=== PATIENT | female | born 1945 | race Caucasian/White ===

== ENCOUNTER → 2017-03-13 | Outpatient (CLI) | payer MEDICARE, BC ==
[~2017-03-13] MED LIST: ALBUTEROL0.83 MG/ML; ASMANEX HF100 MCG/Ac IH; ASPIRIN E.C. 8181 MG PO; CARDIZEM CD 24240 MG PO; CARTIA XT240 MG; CHLORTHALIDONE25 MG PO; DOXYCYCLINE 10100 MG PO; ELIQUIS 5MG PO; FOSAMAX 70MG TA70 MG PO; IMURAN 50MG TAB50 MG PO; KEPPRA 500MG500 MG PO; KLOR-CON 1010 MEQ PO; KLOR-CON M2020 MEQ PO; LASIX 40MG TABL40 MG PO; MULTIPLE VITAMI1 CAP PO; NORVASC 5MG5 MG/TAB PO; PLAVIX 75MG TAB75 MG PO; PREDNISONE20 MG PO; PRILOSEC 20MG20 MG PO; QUALITY CHOICE600 M1 PO; SUPER B COMPLEX1 TA2 PO; SYNTHROID0.05 MG/TA PO; TAMBOCOR 1100 MG/TAB PO; TOPROL XL100 MG PO; XANAX .25M0.25 MG/TA PO; ZESTRIL 20MG TA20 MG PO
== END ==
LOC: MHCPAIN 09:30
DX: G89.29 Other chronic pain (principal); M47.817 Spondylosis without myelopathy or radiculopathy, lumbosacral region; M54.16 Radiculopathy, lumbar region; M53.3 Sacrococcygeal disorders, not elsewhere classified
CPT/HCPCS: G0463

== ENCOUNTER → 2017-05-10 | Outpatient (CLI) | payer MEDICARE, BC | LOC: MC.RAD 07:40 | DX: Z12.31 Encounter for screening mammogram for malignant neoplasm of breast (principal) ==

== ENCOUNTER → 2017-05-14 | Outpatient (CLI) | payer MEDICARE, BC | LOC: MC.RAD 13:56 | DX: R92.8 Other abnormal and inconclusive findings on diagnostic imaging of breast (principal) ==

== ENCOUNTER → 2017-05-31 | Outpatient (CLI) | payer MEDICARE, BC ==
[~2017-05-31] MED LIST changes: +ALMACONE 360 M360 ML PO; +AMOXICILLIN 8751 TAB PO; +BD POSIFLUSH SF10 ML IV; +CALCIUM CARBON650 M2 PO; +CARTIA XT240 MG PO; +CEFTIN500 MG PO; +CLEOCIN HCL300 MG PO; +COLACE 100100 MG/CAP PO; +DULCOLAX S10 MG/SUPP RC; +FLOVENT 220MCG7.9 GM IH; +FLOVENT DI50 MCG/Act IH; +HYGROTON 2525 MG/TAB PO; +IMODIUM 2MG CAPS2 MG PO; +K-DUR20 MEQ PO; +LASIX 20MG TABL20 MG PO; +MEGACE 40MG40 MG/TAB PO; +MELATONIN5 M1 PO; +METROGEL1% TOP; +MILK OF MA400 MG/52 PO; +MIRTAZAPINE7.5 MG PO; +MULTI VITAMINS1 TAB PO; +NAMENDA 10MG TA10 MG PO; +NAMENDA5 MG PO; +NATURAL IRON65 MG PO; +NIRAVAM0.25 MG PO; +PACERONE400 MG PO; +PROVENTIL0.09 MG/A1 IH; +Patient's Own Medica TOP; +SEROQUEL 2525 MG/TAB PO; +TRIAMCINOLONE A15 GM TP; +TYLENOL 325MG325 MG PO; +TYLENOL 8 HR PO; +TYLENOL SU120 MG/SUP RC; +VENTOLIN0.09 MG IH; +VITAMIN B COMPL1 SGL PO; +VITAMIN D 1001000 IU PO; +ZILRETTA32 MG TOP
== END ==
LOC: COL.PUL 05-30 11:20
DX: R06.02 Shortness of breath (principal)

== ENCOUNTER → 2017-07-29 | Outpatient (CLI) | payer MEDICARE, BC ==
[~2017-07-29] MED LIST changes: -ALMACONE 360 M360 ML PO; -AMOXICILLIN 8751 TAB PO; -BD POSIFLUSH SF10 ML IV; -CALCIUM CARBON650 M2 PO; -CARTIA XT240 MG PO; -CEFTIN500 MG PO; -CLEOCIN HCL300 MG PO; -COLACE 100100 MG/CAP PO; -DULCOLAX S10 MG/SUPP RC; -FLOVENT 220MCG7.9 GM IH; -FLOVENT DI50 MCG/Act IH; -HYGROTON 2525 MG/TAB PO; -IMODIUM 2MG CAPS2 MG PO; -K-DUR20 MEQ PO; -LASIX 20MG TABL20 MG PO; -MEGACE 40MG40 MG/TAB PO; -MELATONIN5 M1 PO; -METROGEL1% TOP; -MILK OF MA400 MG/52 PO; -MIRTAZAPINE7.5 MG PO; -MULTI VITAMINS1 TAB PO; -NAMENDA 10MG TA10 MG PO; -NAMENDA5 MG PO; -NATURAL IRON65 MG PO; -NIRAVAM0.25 MG PO; -PACERONE400 MG PO; -PROVENTIL0.09 MG/A1 IH; -Patient's Own Medica TOP; -SEROQUEL 2525 MG/TAB PO; -TRIAMCINOLONE A15 GM TP; -TYLENOL 325MG325 MG PO; -TYLENOL 8 HR PO; -TYLENOL SU120 MG/SUP RC; -VENTOLIN0.09 MG IH; -VITAMIN B COMPL1 SGL PO; -VITAMIN D 1001000 IU PO; -ZILRETTA32 MG TOP
== END ==
LOC: COL.RAD 16:22
DX: R51 Headache (principal); Z86.79 Personal history of other diseases of the circulatory system

== ENCOUNTER → 2018-07-30 | Outpatient (CLI) | payer MEDICARE, BC | LOC: MC.RAD 08:35 | DX: Z12.31 Encounter for screening mammogram for malignant neoplasm of breast (principal) ==

== ENCOUNTER 2018-09-03 08:00 | Outpatient (RCR) | payer MEDICARE, BC | END 2018-10-14 | disposition home or self-care (01) | LOC: MKS.ESL.PT | DX: M79.672 Pain in left foot (principal); M79.671 Pain in right foot; R26.89 Other abnormalities of gait and mobility; Z79.82 Long term (current) use of aspirin; Z79.899 Other long term (current) drug therapy | CPT/HCPCS: G8978-GP; G8979-GP ==

== ENCOUNTER → 2018-10-31 | Outpatient (CLI) | payer MEDICARE, BC | LOC: COL.RAD 14:47 | DX: S09.90XA Unspecified injury of head, initial encounter (principal); G93.89 Other specified disorders of brain; Z98.890 Other specified postprocedural states ==

== ENCOUNTER → 2018-11-10 | Outpatient (CLI) | payer MEDICARE, BC | LOC: COL.RAD 11:23 | DX: S42.034A Nondisplaced fracture of lateral end of right clavicle, initial encounter for closed fracture (principal) ==

== ENCOUNTER 2019-01-21 10:00 | Outpatient (RCR) | payer MEDICARE, BC | END 2019-02-09 | disposition home or self-care (01) | LOC: MKS.ESL.PT | DX: R26.89 Other abnormalities of gait and mobility (principal); R29.6 Repeated falls ==

== ENCOUNTER 2019-02-23 00:50 | Inpatient (IN) | payer MEDICARE, BC ==
[~2019-02-23] VITALS: Ht 162.6 cm; Wt 50.3 kg
[2019-02-23] VITALS (8 sets, daily range): BP systolic 117–156; BP diastolic 42–74; PULSE 78–95; TEMP 98–102.4
[2019-02-23 01:31] LABS: COLLECTION METHOD CLEAN CATCH
[2019-02-23 01:48] LABS: MUCOUS Present /lpf; PH 5 (5-8); SQUAMOUS EPITHELIAL None Seen /hpf; URINE APPEARANCE Hazy; URINE BACTERIA None Seen /hpf; URINE BILIRUBIN Negative (NEGATIVE); URINE BLOOD Negative (NEGATIVE); URINE GLUCOSE Negative (NEGATIVE); URINE KETONE Trace (NEGATIVE); URINE LEUKOCYTE ESTERASE Negative (NEGATIVE); URINE NITRATE Negative (NEGATIVE); URINE PROTEIN(semi-quant) Negative (NEGATIVE); URINE RBC 0-2 /hpf; URINE UROBILINOGEN Negative (NEGATIVE)
[2019-02-23 01:49] LABS: URINE COLOR Yellow
[2019-02-23 02:10] LABS: BASO % 0.2 % (0.0-2.0); EOS # 0.1 (0.0-0.7); GRAN # 8.1 (1.4-6.5); GRAN % 87.3 % (42.2-75.2); HEMATOCRIT 37.9 % (37.0-47.0); LYMPH # 0.5 (1.2-3.4); LYMPH % 4.9 % (20.0-51.0); MEAN CELL VOLUME 85 fl (80.0-100.0); MEAN CORPUSCULAR HEMOGLOBIN 27 pg (27.0-31.0); MEAN CORPUSCULAR HGB CONC 32 g/dl (33.0-37.0); MEAN PLATELET VOLUME 10.2 fl (7.4-10.4); MONO # 0.5 (0.1-0.6); MONO % 5.8 % (1.7-9.3); PLATELET COUNT 172 K/mm3 (130-400); RED BLOOD COUNT 4.44 M/mm3 (4.10-5.30); REDCELL DISTRIBUTION WIDTH-CV 13.5 % (11.5-14.5)
[2019-02-23 02:12] LABS: INR 1.1 (0.8-3.0); PROTHROMBIN TIME 12.4 SECONDS (9.7-12.8)
[2019-02-23 02:18] LABS: ALBUMIN 3.6 gm/dL (3.5-5.0); BILIRUBIN,TOTAL 0.4 mg/dL (0.0-1.0); CALCIUM 9.1 mg/dL (8.4-10.2); CREATININE, serum 0.56 (0.52-1.25); POTASSIUM 3.5 mmol/L (3.4-5.0); TOTAL PROTEIN 7.2 gm/dL (6.4-8.2)
[2019-02-23 02:29] LABS: TROPONIN-I 0.025 ng/mL (0.000-0.035)
[2019-02-23] MEDS ORDERED: K-DUR20 MEQ PO (02:55)
[2019-02-23] MEDS ORDERED: SYNTHROID0.05 MG/TA PO (02:55)
[2019-02-23] MEDS ORDERED: LASIX 20MG TABL20 MG PO (02:56)
[2019-02-23] MEDS ORDERED: TAMBOCOR 1100 MG/TAB PO (03:02)
[2019-02-23] MEDS ORDERED: CARTIA XT240 MG PO (03:02)
[2019-02-23] MEDS ORDERED: HYGROTON 2525 MG/TAB PO (03:02)
[2019-02-23] MEDS ORDERED: KEPPRA 500MG500 MG PO (03:03)
[2019-02-23] MEDS ORDERED: CALCIUM CARBON650 M2 PO (03:03)
[2019-02-23] MEDS ORDERED: TYLENOL 8 HR PO (03:03)
[2019-02-23] MEDS ORDERED: MULTI VITAMINS1 TAB PO (03:04)
[2019-02-23] MEDS ORDERED: VITAMIN D 1001000 IU PO (03:04)
[2019-02-23] MEDS ORDERED: NATURAL IRON65 MG PO (03:05)
[2019-02-23] MEDS ORDERED: FLOVENT 220MCG7.9 GM IH (03:54)
[2019-02-23] MEDS ORDERED: VITAMIN B COMPL1 SGL PO (03:54)
[2019-02-23] MEDS ORDERED: PROVENTIL0.09 MG/A1 IH ×2 (03:55→04:01)
[2019-02-23] MEDS ORDERED: FOSAMAX 70MG TA70 MG PO ×2 (03:56→04:02)
[2019-02-23] MEDS ORDERED: XANAX .25M0.25 MG/TA PO (03:56)
[2019-02-23] MEDS ORDERED: FLOVENT DI50 MCG/Act IH (04:00)
[2019-02-23] MEDS ORDERED: NIRAVAM0.25 MG PO (04:01)
[2019-02-23 04:32] LABS: PROLACTIN 11.9 ng/mL (3.0-18.6)
[2019-02-23 04:47] LABS: TSH w REFLEX 1.81 uIU/mL (0.465-4.680)
--- NOTE | 2019-02-23 05:00 | NUR ---
PT ADMITTED WITH ALTERED MENTAL STATUS. PT FORGETFUL, VERY DROWSY. BED ALARM ON. SEE 5 PAGE ADMISSION ASSESSMENT.
[2019-02-23 05:02] LABS: MAGNESIUM 1.5 mg/dL (1.6-2.3); PHOSPHOROUS 2.8 mg/dL (2.5-4.5)
--- NOTE | 2019-02-23 11:00 | NUR ---
Patient alert, intermittent confusion noted. See assessment. Neuro assessment completed. Ambulates in room with assist x1 with gait belt and FWW, gait shuffling. IV fluids infusing. Spouse at bedside. No c/o at this time.
--- NOTE | 2019-02-23 11:25 | NUR ---
SW met with patient and about discharge planning. Patient lives at home with her . Patient's PCP is Dr Olson and she obtains prescriptions from [facility]. Patient uses a walker or cane but no other DME is reported. Patient does not use any home health services. Patient does have a DPOA. Patient's voiced concern about patient discharging home because they have stairs and patient is unable to use the stairs at this time. SW reported that PT will be able to work with her on the stairs while she is here and see if she is safe to go home. SW reported that if patient is not safe to go home, SW can provide options for post acute rehab. MEKHI explained the difference between SNF and IPR. SW will continue to follow.
--- NOTE | 2019-02-23 14:50 | NUR ---
Initial visit; Patient was able to let Case Hardener know she is not doing well and very much wanted prayer. Case Hardener offered prayer for patient and her . Case Hardener will follow up.
--- NOTE | 2019-02-23 20:00 | NUR ---
REPORT RECEIVED. ASSUMED CARE FOR ORDNANCE HANDLER. ASSESSMENT COMPLETE SEE NOTE. VS STABLE. DENIES PAIN-SEEMS VERY CONFUSED TO WHERE SHE IS AND WHY. MUMBLING ON AND OFF. FAMILY IS AT BEDSIDE STATIING SHE HAS BEEN VERY CONFUSED THIS AFTERNOON-STATES SHE NEEDS THE BATHROOM THEN STATES SHE DOESNT. NO S/S OF DISTRESS NOTED. CALL LIGHT WITHIN REACH. BED IN LOW POSITION-ALARM ON. WILL MONITOR.
--- NOTE | 2019-02-23 22:00 | NUR ---
NOTED BE VERY WARM TO TOUCH. VERY CONFUSED. UNABLE TO GIVE PO HS MEDICATIONS. AXILLARY TEMP 102.4. NOTIFIED HOSPITALIST-NEW ORDERS RECEIVED. WILL MONITOR.
--- NOTE | 2019-02-23 23:50 | NUR ---
AFEBRILE. STILL CONFUSED BUT AWAKE ENOUGH TO TAKE HS MEDICATIONS WITH APPLESAUCE. DENIES PAIN. WILL MONITOR.
[2019-02-24] VITALS (134 sets, daily range): BP systolic 107–150; BP diastolic 52–87; PULSE 88–128; TEMP 98.4–103.1; O2SAT 58–97
--- NOTE | 2019-02-24 05:00 | NUR ---
TELE SHOWING A FIB. NOTIFIED PROVIDER. NEW ORDERS RECEIVED AND IMPLEMENTED. LOVENOX GIVEN WELL LOPRESSOR. VS STABLE AT THIS POINT. SEEMS TO BE LESS CONFUSED KNOWING NAME AND . DENIES PAIN. BRANDY HUITRON
[2019-02-24 06:19] LABS: POTASSIUM 2.9 mmol/L (3.4-5.0)
[2019-02-24 06:30] LABS: CALCIUM 8.3 mg/dL (8.4-10.2); CREATININE, serum 0.5 (0.52-1.25)
--- NOTE | 2019-02-24 06:54 | NUR ---
REPORT FROM FELIX GUAN.
--- NOTE | 2019-02-24 07:08 | NUR ---
REPORT TO ROGE MAN
[2019-02-24 08:04] LABS: BASO % 0.3 % (0.0-2.0); EOS % 0.2 % (0-4.0); GRAN # 8.9 (1.4-6.5); GRAN % 85.1 % (42.2-75.2); HEMOGLOBIN 11.2 g/dl (12.5-16.0); LYMPH # 0.7 (1.2-3.4); LYMPH % 6.4 % (20.0-51.0); MEAN CELL VOLUME 85 fl (80.0-100.0); MEAN CORPUSCULAR HEMOGLOBIN 27 pg (27.0-31.0); MEAN CORPUSCULAR HGB CONC 32 g/dl (33.0-37.0); MEAN PLATELET VOLUME 10.6 fl (7.4-10.4); MONO # 0.8 (0.1-0.6); MONO % 7.5 % (1.7-9.3); PLATELET COUNT 181 K/mm3 (130-400); RED BLOOD COUNT 4.16 M/mm3 (4.10-5.30); REDCELL DISTRIBUTION WIDTH-CV 13.6 % (11.5-14.5)
[2019-02-24 08:05] LABS: HEMATOCRIT 35.2 % (37.0-47.0)
--- NOTE | 2019-02-24 08:44 | NUR ---
PATIENT REMAINS CONFUSED. AT BEDSIDE. TRANSFERED PT TO [facility] NO RESULTS. THIS WAS AFTER PT WAS INCONTINENT OF URINE AND WAS CLEANDED UP BY STAFF.
--- NOTE | 2019-02-24 13:22 | NUR ---
IRENA TO ROOM 325 TO DO EEG. ASSISTED PT TO COMMODE AND THEN TO BED FOR TEST.
--- NOTE | 2019-02-24 16:48 | NUR ---
CHEST XRAY BEING COMPLETED AT THIS TIME. PT SPIKED A TEMP OF 101.4 CONTACTED SEEMA ZIMMER. [facility]
--- NOTE | 2019-02-24 19:04 | NUR ---
report to Asia GUAN.
--- NOTE | 2019-02-24 19:18 | NUR ---
Report received from ROGE Riggs.
--- NOTE | 2019-02-24 20:15 | NUR ---
Pt arrived to unit via medical bed X2 staff assistance. Pt pale in color and diaphoretic to touch. Family assisted pt although was directed to waiting room in order to get pt settled at this time. Pt was tx to ICU08 bed X5 staff assistance. Bedside report was received. Pt able to open eyes to name and stimulation although would not answer questions when asked.
[2019-02-24 20:18] LABS: ARTERIAL BLD GAS O2 SATURATION 88.2 % (92-100); ARTERIAL BLD GAS TCO2 CT 21.9; ARTERIAL BLOOD GAS BASE EXCESS -0.5 (-2-2); ARTERIAL BLOOD GAS HCO3 21.1 meq/L (22-26); ARTERIAL BLOOD GAS PCO2 26.2 mmHg (35-45); ARTERIAL BLOOD GAS PO2 52.4 mmHg (80-100); ARTERIAL BLOOD GAS pH 7.52 (7.35-7.45)
--- NOTE | 2019-02-24 20:53 | NUR ---
IV started in pts L hand due to incompatibility with Zosyn and Cardizem. Pt tolerated insertion well with 1 attempt. Per Gabi Hill APRN, do not administer Cardizem bolus although start the gtt at this time.
[2019-02-24 21:13] LABS: CALCIUM 7.7 mg/dL (8.4-10.2); CREATININE, serum 0.61 (0.52-1.25); MAGNESIUM 2.2 mg/dL (1.6-2.3)
[2019-02-24 21:17] LABS: POTASSIUM 2.7 mmol/L (3.4-5.0)
--- NOTE | 2019-02-24 22:50 | NUR ---
Bedside nurses swallow study completed. Pt unable to get any liquids through a straw, although was able to drink out of a cup with assistance. Pt swallowed pudding in small bites with no complaints or noted coughing following administration/ swallowing. Pills administered although pt reported although being able to swallow pills at home, unable to swallow them whole at this time. Pills crushed and administered with no noted difficulty.
[2019-02-25] VITALS (562 sets, daily range): BP systolic 98–144; BP diastolic 60–83; PULSE 80–100; TEMP 97.2–100.4; O2SAT 50–100
--- NOTE | 2019-02-25 01:26 | NUR ---
At about 1940 Family noted to be talking with MARTA Ashley, and this nurse walked into the room. Patient noted to be moaning and mumbling infrequently as she did during bedside report. Noted to be breathing fast through her mouth and is diaphoretic. Temperature noted to be 103.1. blankets removed and temperature in the room decreased. Wet wash cloth applied to forhead. Rectal Tylenol given per Gabi. Incontinent cares were provided at this time. Vitals were taken and oxygen saturation low with high heart rate noted. Gabi updated. Oxygen saturation noted to be 77%. 5L oxygen administered via nasal cannula. Respiratory therapy called. Oxy mask applied when respiratory therapy was with patient. Oxygen increased to 87% on 5L oxymask. ABGs were obtained. Patient has eyes closed and doesn't appear to be aware of staff in the room. chocolate finisher operator alerted this nurse that the patient was in A-fib at a high rate. Pulse noted to be ranging from 113-132. Gabi stated she wanted to transfer patient to the ICU. Attempted to call supervisor housecleaner multiple times with no answer. Daria, studio operations engineer in charge, notified about situation. Gabi asked me to call ICU charge nurse and check on a bed. This nurse spoke with Yon about the situation. Daria then called me and stated patient would be going into room 8. Patient and family was then prepped to go to ICU. Patient awoke to her name in the elevator, but promptly closed her eyes. Patient taken by bed to ICU 8, where verbal report was given to ROGE Headley.
--- NOTE | 2019-02-25 02:30 | NUR ---
Pt was noted to have an increased temp of 100.4 at this time. Top blanket removed and fan turned on at this time. If no improvement noted will administer PRN Tylenol per order.
[2019-02-25 05:17] LABS: BASO # 0.1 (0.0-0.2); BASO % 0.4 % (0.0-2.0); HEMOGLOBIN 10.4 g/dl (12.5-16.0); LYMPH # 0.8 (1.2-3.4); LYMPH % 6.7 % (20.0-51.0); MEAN CELL VOLUME 83 fl (80.0-100.0); MEAN CORPUSCULAR HEMOGLOBIN 27 pg (27.0-31.0); MEAN CORPUSCULAR HGB CONC 33 g/dl (33.0-37.0); MONO # 0.9 (0.1-0.6); MONO % 7.2 % (1.7-9.3); PLATELET COUNT 140 K/mm3 (130-400); RED BLOOD COUNT 3.82 M/mm3 (4.10-5.30); REDCELL DISTRIBUTION WIDTH-CV 13.8 % (11.5-14.5)
[2019-02-25 05:22] LABS: HEMATOCRIT 31.7 % (37.0-47.0)
[2019-02-25 05:47] LABS: CREATININE, serum 0.64 (0.52-1.25); MAGNESIUM 2.2 mg/dL (1.6-2.3); POTASSIUM 3.8 mmol/L (3.4-5.0)
--- NOTE | 2019-02-25 07:15 | NUR ---
BEDSIDE REPORT RECEIVED FROM ROGE STEWART. POC DISCUSSED. PATIENT ALERT AND PARTIALLY ORIENTED. CARE TAKEN OVER.
--- NOTE | 2019-02-25 07:20 | NUR ---
Bedside report provided to Trini GUAN. Pt significant other and daughter Conchita at bedside active in report at this time.
--- NOTE | 2019-02-25 09:30 | NUR ---
PATIENT LEAVES FOR LUMBAR PUNCTURE AT THIS TIME.
--- NOTE | 2019-02-25 10:15 | NUR ---
PATIENT RETURNS TO ICU ROOM 8. SHE IS LYING FLAT. VS WNL. WILL CONTINUE TO MONITOR.
[2019-02-25 10:41] LABS: GLUCOSE,CSF 77 mg/dL (40-70); TOTAL PROTEIN,CSF 44 mg/dL (15-45)
[2019-02-25 11:32] LABS: CSF COLOR COLORLESS
[2019-02-25 11:33] LABS: CSF APPEARANCE CLEAR; CSF MONONUCLEAR 0 % (70-100); CSF POLYMORPHONUCLEAR 0 % (0-6); CSF RBC 5 /mm3 (0-0)
--- NOTE | 2019-02-25 14:00 | NUR ---
PATIENT UP TO [facility] FOR THE LAST COUPLE HOURS. SHE TRANSFERRED WITH ONE PERSON ASSIST. SHE IS UNSTEADY ON HER FEET. SPEECH THERAPY IN TO SEE PATIENT AT THIS TIME. WILL CONTINUE TO MONITOR
--- NOTE | 2019-02-25 15:30 | NUR ---
MEKHI spoke with patient daughter/DPOA, Whitney [phone], about discharge plan. Whitney inquired if patient will require post acute rehab. MEKHI reported that SNF has been recommended and MEKHI will meet with patient and he significant other about choices. MEKHI will also keep Whitney informed with the discharge plan.
--- NOTE | 2019-02-25 15:45 | NUR ---
REPORT GIVEN TO ROGE VICTOR ON MEDICAL FLOOR. PATIENT WILL TRANSFER TO ROOM 354
--- NOTE | 2019-02-25 16:57 | NUR ---
Pt up to unit from ICU. Pt denies pain or SOB at rest. Pt remains on oxygen via nasal cannula. Pt's daughter and fiance at pt's bedside. Pt IV's free of complication and no redness or infiltration noted. Pt has call light in reach and fall precautions in place d/t confusion/forgetfulness. Pt pleasant and able to follow commands.
--- NOTE | 2019-02-25 19:51 | NUR ---
Pt becoming more restless this evening and confused. Notified by Zaida GUAN pt was desatting into 70's. Pt had nasal cannula on at 3L and mouth breathing. Arlette GUAN was given report and accompanyied this nurse. Pt was diaphoretic and nasal cannula put in pt's mouth until non rebreather mask obtained and RT notified. Pt's oxygen started to climb with 5L nasal cannula then recovered with mask and then RT gave breathing tx. Pt VS other than oxygen saturation were WNL. Temp 98.5. Pt confused. Pt repositioned in bed. Pt has fiance at bedside. Pt stable at this time and RT in room. Pt has call light in reach and bed alarm and fall precautions in place. Pt has Zosyn running per orders.
--- NOTE | 2019-02-25 20:02 | NUR ---
CALLED TO ROOM BY RN PT DYSPNIC ALEJANDRA I & e WHEEZES DST 74 ON 3 LPM NC PLACED ON OXYMASK 15 LPM
--- NOTE | 2019-02-25 20:42 | NUR ---
Report called at this time by ROGE Chong. Patient will be brought dwon shortly.
--- NOTE | 2019-02-25 20:54 | NUR ---
Patient arrives via bed at this time. Patient is on BiPAP. RT, RN, and MEDIA CENTER DIRECTOR SCHOOL brought patient down. Transferred patient to unit bed via slide. Attached patient to monitoring equipment. NS drip restarted at 60ml. Dr. Curry at the bedside. Assessment complete. Patient has coarse lung sounds in the upper lobes bilaterally with fine crackles in the bases biltaerally. Bases are also diminished. Patient is tachypneic breathing around 28-30 breaths a minute even with BiPAP on at 90% FIO2. HR and rhythm regular with normal S1 and S2. Bowel sounds are active x4. Patient is alert but confused and very anxious. Continually trying to get out of bed. Chest xray performed at bedside. Dr Curry goes to speak with family. Family now at bedside. Patient is more calm with daughter in the room. Orders for 20mg lasix IV to be given now and precedex started.
--- NOTE | 2019-02-25 21:18 | NUR ---
1930: OUT OF ROOM REPORTING THAT PATIENT WAS VERY SHORT OF BREATHE AND CONFUSED. UPON ENTERING ROOM PATIENT ALERT BUT CONFUSED. OXYGEB SATURATION IN LOW 70 ON 3LO2/NC. DIAPHORETIC. SEE FLOW SHEET FOR FVS OBAINED. TELEMETRY CALLED NSR WITH NO CHANGES IN RATE OR RHYTHM. RT CALLED. NEBULIZER TX ADMINISTERED BY RT CHANGED TO NRB MASK @ 15L. OXYGEN SATURATION UP TO LOW 90S AFTER 10 MINUETS. CONTINUES WITH INCREASED WORK OF BREATHING WITH RESPIRATORY RATE @ 32. CONFUSED, DIAPHORETIC. RUMA LOZANO NOTIFIED. REQUESTED TO CALL PULMOLOGY. DR CANNON CALLED @ 2009. ORDERS RECEIVED FOR BIPAP AND TRANSFER TO ICU. EKG, AND STAT TROPONIN. HOUSE NOTIFIED BY CHARGE NURSE FOR ICU TRANSFER. BIPAP APPLIED BY RT
--- NOTE | 2019-02-25 21:20 | NUR ---
Verbal order to start precedex at this time at 0.1mcg/kg/hr by Dr. Curry.
[2019-02-25 21:53] LABS: CALCIUM 8.5 mg/dL (8.4-10.2); CREATININE, serum 0.71 (0.52-1.25); PHOSPHOROUS 2.4 mg/dL (2.5-4.5); POTASSIUM 3.8 mmol/L (3.4-5.0)
[2019-02-25 22:11] LABS: TROPONIN-I 6 HR POST INITIAL 0.272 ng/mL (0.000-0.034)
[2019-02-25 23:59] LABS: ARTERIAL BLOOD GAS PCO2 33.5 mmHg (35-45); ARTERIAL BLOOD GAS pH 7.37 (7.35-7.45)
[2019-02-26] VITALS (751 sets, daily range): BP systolic 85–149; BP diastolic 51–84; PULSE 72–119; TEMP 98.4–99.8; O2SAT 69–100
[2019-02-26] LABS: ARTERIAL BLD GAS O2 SATURATION 98.3 % (92-100); ARTERIAL BLOOD GAS BASE EXCESS 5.3 (-2-2); ARTERIAL BLOOD GAS HCO3 19.1 meq/L (22-26); ARTERIAL BLOOD GAS PO2 134.6 mmHg (80-100)
--- NOTE | 2019-02-26 | NUR ---
Patient asleep at this time. Awakens to name. Assessment complete. No acute changes from previous exam. Vitals are stable. Patient starts insisting again that she needs to get up and go, she begins talking about "walking down to the corner". Attempted to reorient patient and let her know she is in the hospital in the ICU. Patient states "I know, but I gotta go. I have to walk down there". After a short while staying in the room patient started to calm down and stopped trying to climb out of bed. Bed alarm on. No further needs. Will continue to monitor.
--- NOTE | 2019-02-26 01:30 | NUR ---
Patient starts to become very agitated again saying repeatedly that she wants the BiPAP taken off. BiPAP removed and patient placed on 15L. Patient was only able to sustain mask for 5mins before desatting into the 70's and having increased accessory muscle usage. Switched patient back to BiPAP. Sat's have come back up to 95% after a minute.
--- NOTE | 2019-02-26 02:30 | NUR ---
Orders from Dr. Baker at [facility] to increase dose to 1.4 mcg/kg/hr now, then titrate as needed. Also 2mg IV morphine to be give now with 1 more dose later if needed.
--- NOTE | 2019-02-26 02:45 | NUR ---
Written orders from Dr. Baker to increase Precedex to 1.4 mcg/kg/hr now, then titrate as needed. Also order for 2mg IV morphine now with one more 2mg IV dose if needed. Orders entered and placed on chart
--- NOTE | 2019-02-26 04:00 | NUR ---
Assessment complete. Patient asleep at this time. Awakens to name. Intermittently restless. No changes from previous exam. Heart, lung, and bowel sounds remain the same. Vitals have remained stable. No current needs. Will continue to monitor. Call light within reach.
--- NOTE | 2019-02-26 04:30 | NUR ---
Patient awake again at this time and agitated, pulling at mask and trying to climb over the side rail. Precedex increased. Patient remains agitated. Tried talking to the patient and orienting her, but was unsuccessful. Patient continues to state that she needs to "get up. I need to go. I have to get up". Spoke with patient and let her know if she needs to use the restroom that she has a catheter in and is already urinating. Urine has been flowing clearly without obstruction since insertion. Patient continues to insist that she needs to get up and go. Stayed in patient room for multiple titrations of precedex. At 0505 patient is at 1.5mcg/kg/hr of precedex, which is max dose. At 0512 Patient is asleep again and resting comfortably. Will continue to monitor. Call light within reach. Also administered second dose of morphine.
--- NOTE | 2019-02-26 05:06 | NUR ---
Patient's eldest daughter (DPOA) calls at this time. Updated her on patient status and being brought down to the ICU again. Let her know that patient is currently stable, but she is requiring a lot of oxygen. Patient was unable to tolerate time off the BiPAP. She is very restless and agitated and requiring the max dose of precedex to keep her calm. Patient has also gotten 2 doses of morphine to help with air hunger and possible pain, which has helped. Patient is still breathing 28-32 times a minute with the medications and is on 60% FIO2 via BiPAP. Explained to her BiPAP and how that works and the FIO2. She is asking if she should be getting plane tickets to come out since she lives in [facility]. Let her know that the choice is hers but she should speak with the family who is present here as well. Once again confirmed that patient is stable for now and has been since being in the ICU. No further questions at this time.
--- NOTE | 2019-02-26 07:00 | NUR ---
Bedside report from ROGE Sanchez. Patient VERY restless and trying to climb out of bed, all lines and gtts verified. Bed alarm on and fall precautions in place.
--- NOTE | 2019-02-26 07:15 | NUR ---
Assessment complete, patient on bipap at 60%, continually pulls at bipap mask, flings legs over side rail of bed, and continues to try and pull herself out of bed, patient asks "how Nolberto is." Call light within reach, this RN in room constantly, as patient is climbing out of bed. Bed alarm remains on, fall precautions in place.
--- NOTE | 2019-02-26 07:20 | NUR ---
Bedside report given to ROGE Newell. Assisted with repositioning patient. All lines and medications reviewed. transfer of care at this time.
--- NOTE | 2019-02-26 08:00 | NUR ---
Family at bedside, VERY attentive.
--- NOTE | 2019-02-26 08:20 | NUR ---
Patient cannot swallow pills at this time, attempted several times and finally spit them out.
--- NOTE | 2019-02-26 08:27 | NUR ---
Dr. Cox here, takes patient off bipap, places patient on 5L/OM, patient aggitated and dyspneic, orders for ativan to be given.
--- NOTE | 2019-02-26 08:40 | NUR ---
Dr. Cox wants patient back on bipap at this time. Family at bedside.
[2019-02-26 08:49] LABS: ARTERIAL BLD GAS O2 SATURATION 94.5 % (92-100); ARTERIAL BLD GAS TCO2 CT 19.4; ARTERIAL BLOOD GAS BASE EXCESS -4.9 (-2-2); ARTERIAL BLOOD GAS HCO3 18.5 meq/L (22-26); ARTERIAL BLOOD GAS PCO2 29.1 mmHg (35-45); ARTERIAL BLOOD GAS PO2 74.6 mmHg (80-100); ARTERIAL BLOOD GAS pH 7.42 (7.35-7.45)
--- NOTE | 2019-02-26 09:13 | NUR ---
AIVS here to place picc line.
[2019-02-26 09:51] LABS: MEAN CELL VOLUME 86 fl (80.0-100.0); MEAN CORPUSCULAR HGB CONC 31 g/dl (33.0-37.0); MEAN PLATELET VOLUME 11.3 fl (7.4-10.4); PLATELET COUNT 166 K/mm3 (130-400); RED BLOOD COUNT 3.54 M/mm3 (4.10-5.30); REDCELL DISTRIBUTION WIDTH-CV 13.9 % (11.5-14.5)
[2019-02-26 09:54] LABS: HEMATOCRIT 30.3 % (37.0-47.0); HEMOGLOBIN 9.5 g/dl (12.5-16.0); MEAN CORPUSCULAR HEMOGLOBIN 27 pg (27.0-31.0)
[2019-02-26 10:01] LABS: ALBUMIN 2.8 gm/dL (3.5-5.0); BILIRUBIN,TOTAL 0.7 mg/dL (0.0-1.0); CREATININE, serum 0.85 (0.52-1.25); MAGNESIUM 1.8 mg/dL (1.6-2.3); PHOSPHOROUS 2.4 mg/dL (2.5-4.5); POTASSIUM 3.1 mmol/L (3.4-5.0)
--- NOTE | 2019-02-26 10:15 | NUR ---
PT here to see patient.
[2019-02-26 10:35] LABS: LYMPHOCYTE 9 % (20.0-51.0); NEUTROPHILS 86 % (42.0-75.2)
[2019-02-26 10:36] LABS: PLATELET ESTIMATE NORMAL (NORMAL)
--- NOTE | 2019-02-26 14:00 | NUR ---
Patient taken off bipap, placed on 8L/OM by RT at this time, boyfriend in room, this RN speaking with daughter Whitney of phone, giving update.
--- NOTE | 2019-02-26 15:19 | NUR ---
Patient diaphoretic, tachycardic, tachypneic, placed back on bipap, boyfriend at bedside.
--- NOTE | 2019-02-26 15:52 | NUR ---
Patient continues to try and climb out of bed, daughter at bedside.
--- NOTE | 2019-02-26 16:00 | NUR ---
PRN ativan given as ordered for agitation/restlessness, daughter at bedside.
--- NOTE | 2019-02-26 17:12 | NUR ---
Patient resting quietly in bed, daughter at bedside.
--- NOTE | 2019-02-26 19:13 | NUR ---
Bedside report given to ROGE Sanchez.
--- NOTE | 2019-02-26 19:15 | NUR ---
Bedside report received from ROGE Newell. Patient is awake in bed and restless. Lines and medications reviewed. Transfer of care at this time.
--- NOTE | 2019-02-26 20:00 | NUR ---
Patient is very alert and trying to climb out of bed by scooting herself down in the bed and flipping her legs over the side. With assistance, repositioned the patient. She is trying to pull the BiPAP off. Spoke with her about the BiPAP and how it is helping her breathe. Patient stopped pulling at the mask for a short while. Assessment complete. Family at bedside. Patient alert and confused. Follows commands. lungs are coarse in all coello with diminished bases, upper lobes have expiratory wheezes. Bowel sounds are active x4. Patient is tachycardic in the 130's and in afib. Patient's catheter has yellow clear urine flowing. Patient does not have complaints of pain at this time, but is restless and anxious. Daughter is currently rubbing the patients legs with lotion. Gave patient a break from the BiPAP to have some water, BiPAP replaced. No further needs at this time. Will continue to monitor. Call light within reach.
--- NOTE | 2019-02-26 21:40 | NUR ---
Patient is very agitated and trying to climb out of bed and pull off the BiPAP. She has also started pulling at her PICC line and jean. This nurse has been at the bedside since shift start trying to distract and reorient the patient. No success. Will contact EICU for new orders.
--- NOTE | 2019-02-26 22:45 | NUR ---
Precedex started at this time at 1.4 mcg/kg/hr as directed by Dr. Baker at [facility]. Orders placed on chart.
[2019-02-27] VITALS (722 sets, daily range): BP systolic 102–138; BP diastolic 56–87; PULSE 74–125; TEMP 97.5–99.2; O2SAT 42–100
--- NOTE | 2019-02-27 | NUR ---
Patient resting at this time, but is starting to wake up again. Assessment complete. Lungs are coarse with diminished bases and expiratory wheezes in the left lung. Patient continues to be tachypneic anywhere from 32-40 breaths a minute. Bowel sounds are active. Patient's heart rate is still in the 110's to 130's and in afib. Patient appears comfortbale at this time. Vitals have remained stable. Will continue to monitor. Call light within reach.
--- NOTE | 2019-02-27 00:45 | NUR ---
Patient has returned to a normal sinus rhythm at this time. Confirmed by MT. Oswald
[2019-02-27 00:50] LABS: BASO % 0.4 % (0.0-2.0); GRAN # 8.8 (1.4-6.5); GRAN % 79.7 % (42.2-75.2); LYMPH # 1.1 (1.2-3.4); LYMPH % 10.2 % (20.0-51.0); MEAN CELL VOLUME 87 fl (80.0-100.0); MEAN CORPUSCULAR HGB CONC 31 g/dl (33.0-37.0); MEAN PLATELET VOLUME 10.6 fl (7.4-10.4); MONO % 8.6 % (1.7-9.3); PLATELET COUNT 195 K/mm3 (130-400); RED BLOOD COUNT 3.43 M/mm3 (4.10-5.30)
[2019-02-27 00:53] LABS: HEMATOCRIT 29.7 % (37.0-47.0); HEMOGLOBIN 9.3 g/dl (12.5-16.0); MEAN CORPUSCULAR HEMOGLOBIN 27 pg (27.0-31.0)
[2019-02-27 01:01] LABS: CALCIUM 7.8 mg/dL (8.4-10.2); CREATININE, serum 0.94 (0.52-1.25); MAGNESIUM 1.6 mg/dL (1.6-2.3); PHOSPHOROUS 1.9 mg/dL (2.5-4.5); POTASSIUM 4.1 mmol/L (3.4-5.0)
--- NOTE | 2019-02-27 02:35 | NUR ---
Carol from [facility] comes over the room camera at this time and speaks with this nurse. Let her know I was going to call and request some morphine, since that seems to work best in calming her down. See physician notification for details. She will pass on to Dr. Baker and fax written orders when ready.
--- NOTE | 2019-02-27 04:00 | NUR ---
Patient sleeping, but is easily disturbed. When awake, patient is hyperalert and lashing out at staff, but quickly will fall asleep again. Assessment complete. Lungs are coarse in all coello with diminished bases. No evidence of wheezing at this time. HR and rhythm regular, patient remains in normal sinus. Bowel sounds active x4. Patient given a bed bath and linens changed. Repositioned for comfort. No further needs at this time. Will continue to monitor. Call light within reach.
--- NOTE | 2019-02-27 05:08 | NUR ---
Patient is back in afib on the monitors at this time. HR ranges from to 90's to 110's.
[2019-02-27 05:14] LABS: ALBUMIN 2.8 gm/dL (3.5-5.0); BILIRUBIN,TOTAL 0.7 mg/dL (0.0-1.0); CALCIUM 7.8 mg/dL (8.4-10.2); CREATININE, serum 0.92 (0.52-1.25); MAGNESIUM 1.6 mg/dL (1.6-2.3); PHOSPHOROUS 1.7 mg/dL (2.5-4.5); POTASSIUM 3.1 mmol/L (3.4-5.0); TOTAL PROTEIN 5.9 gm/dL (6.4-8.2)
--- NOTE | 2019-02-27 06:00 | NUR ---
Dosages adjusted at this time for new bag of Amiodarone up to 17.3ml instead of 16.7. Precedex dose adjusted for new weight of 60.9, which changes dose to 23.7ml/hr, still at 1.5mcg/kg/hr.
--- NOTE | 2019-02-27 07:26 | NUR ---
Bedside report given to ROGE Handley. All lines and medications reviewed. Transfer of care at this time.
--- NOTE | 2019-02-27 08:30 | NUR ---
DR HICKEY PRESENT TO ROUND ON PATIENT.
--- NOTE | 2019-02-27 08:45 | NUR ---
SPOKE AT LENGTH WITH PATIENT'S BOYFRIEND AND HIS DAUGHTER AND SON IN LAW. PT'S BOYFRIEND INQUIRING ABOUT NUTRITION FOR PATIENT. DISCUSSED AT LENGTH WITH FAMILY MEMBERS AND EXPLAINED TO THEM ABOUT CURRENT MEDICATIONS, NUTRITIONAL STATUS, PROGRESS, ETC. FAMILY THANKED ME FOR EXPLAINING EVERYTHING. PT SEEMS AT EASY AND COMFORTABLE WITH CURRENT PLAN AND TREATMENT.
[2019-02-27 08:56] LABS: ARTERIAL BLD GAS O2 SATURATION 98.1 % (92-100); ARTERIAL BLD GAS TCO2 CT 21.5; ARTERIAL BLOOD GAS BASE EXCESS -2.4 (-2-2); ARTERIAL BLOOD GAS HCO3 20.6 meq/L (22-26); ARTERIAL BLOOD GAS PCO2 29.7 mmHg (35-45); ARTERIAL BLOOD GAS PO2 137.8 mmHg (80-100); ARTERIAL BLOOD GAS pH 7.46 (7.35-7.45)
--- NOTE | 2019-02-27 09:23 | NUR ---
FIO2 DECREASED TO 40% BY RT.
--- NOTE | 2019-02-27 10:37 | NUR ---
ALEXIS AND HOSPITALIST HOPING TO START TPN ON PATIENT BUT PT HAS LIMITED ACCESS AVAILABLE D/T BUMEX GTT, PRECEDEX GTT, AND AMIODARONE GTT ALONG WITH IV ATB AND KEPPRA IV. 20G PERIPHERAL IV INITATED TO LEFT OUT AC TO ACCOMODATE IV MEDICATIONS IN ORDER TO START TPN THROUGHT PICC LINE.
[2019-02-27 11:56] LABS: CHOLESTEROL 93 mg/dL (120-200); TRIGLYCERIDE 119 mg/dL
--- NOTE | 2019-02-27 12:15 | NUR ---
GTT PLACED ON STANDBY TO ASSESS PATIENT'S MENTATION.
--- NOTE | 2019-02-27 12:16 | NUR ---
PT AWOKE AND ATTEMPTED TO TAKE BIPAP MASK OFF. I ASKED PATIENT IF SHE WOULD LIKE A BREAK FROM THE BIPAP AND PT STATED YES. PT PLACED ON 4L OM. PT'S O2 SAT 91% ON 4L OM. PT HAS MILD LABORING OF BREATHING BUT DENIES SHORTNESS OF BREATH. PT ANSWERING SOME QUESTIONS APPROPRIATELY BUT SPEECH IS SLIGHTLY GARBLED AND DIFFICULT TO UNDERSTAND. ATTEMPTED TO GET FAMILY FROM WAITING ROOM BUT FAMILY NO LONGER THERE. I EXPLAINED TO PATIENT THAT FAMILY IS NOT HERE AT THE MOMENT BUT I WILL GO CHECK AGAIN IN A FEW MINUTES TO SEE IF THEY HAVE RETURNED. PT MAKING SOME INCOMPREHENSIBLE MOANING AND TALKING BUT OVERALL PT BEING CALM AND COOPERATIVE. PT HAVING DIFFICULT TIME OPENING EYES SO I PLACED PRECEDEX GTT ON STANDBY TO ALLOW PT TO AWAKEN TO ASSESS MENTATION.
--- NOTE | 2019-02-27 12:53 | NUR ---
PT TOLERATING BEING ON 4L OM WELL. PT'S MENTATION SLIGHTLY BETTER. PT ANSWERING QUESTIONS APPROPRIATELY. PT SLIGHTLY CONFUSED ABOUT TIME AND CURRENT SITUATION. PT SPEAKING IN COMPLETE SENTENCES.
--- NOTE | 2019-02-27 12:54 | NUR ---
PRECEDEX GTT CONTINUES TO BE ON STANDBY TO ASSESS PATIENT'S MENTATION.
--- NOTE | 2019-02-27 14:11 | NUR ---
PT BECOMING DYSPNEIC AND LETHARGIC. PT BIPAP RESUMED WELL PRECEDEX GTT FOR AGITATION AND SOB. GTT RESTARTED AT 0.5MCG/KG/MIN.
--- NOTE | 2019-02-27 14:42 | NUR ---
PT CONTINUES TO BE TACHYPNEIC AND RESTLESS. PRECEDEX GTT INCREASED.
--- NOTE | 2019-02-27 15:38 | NUR ---
WAITING FOR PATIENT TO BE FINISHED WITH TRAY BEFORE TRANSPORTING HER TO MEDICAL FLOOR.
--- NOTE | 2019-02-27 15:39 | NUR ---
MEKHI spoke with patient's daughter, Conchita, about discharge planning. Conchita reports her sister Whitney (patient's DPOA) has been researching facilities for patient but has not chosen one yet. Conchita reports Whitney is unvailable to speak with right now due to a family issue but Conchita will speak with Whitney hood and report back to SW tomorrow morning. MEKHI provided medicare.gov resource list for nursing facilities for Conchita to review with Whitney and patient's significant other, Nolberto. MEKHI will leave a note for weekend SW to follow up with patient's family tomorrow morning.
--- NOTE | 2019-02-27 16:01 | NUR ---
PT CONTINUES TO BE AGITATED AND PULLING AT BIPAP MASK EVEN AFTER PRN ATIVAN. PRECEDEX GTT INCREASED TO 1.5MCG/KG/MIN.
--- NOTE | 2019-02-27 16:37 | NUR ---
PT CONTINUES TO BE RESTLESS AND AGITATED. ATTEMPTED TO ALLOW PATIENT TO JUST WEAR OM AT 4L BUT PT UNABLE TO TOLERATE D/T SOB. PT PLACED BACK ON BIPAP.
--- NOTE | 2019-02-27 19:15 | NUR ---
Bedside report received from ROGE Handley. All lines and medications reviewed. Patient is restless and pulling at the mask at this time. Boyfriend, Nolberto, at the bedside.
--- NOTE | 2019-02-27 20:00 | NUR ---
Patient opens eyes to speech, she is continually pulling at the mask and pushing her fingers under the seal. Readjusted mask, patient appears more comfortable and is no longer pulling at it. Assessment complete. Assessment reveals Coarse lung sounds in all coello with diminished bases. HR and rhythm regular at this time. Bowel sounds active x4. Patient does follow commands, but has a weak grasp. Patient is starting to develop a small amount of edema in her lower extremities. Patient does not appear to be in any pain. No signs of distress or SOB. Patient is tachypneic. No further needs at this time. Will continue to monitor. Call light within reach.
--- NOTE | 2019-02-27 20:30 | NUR ---
Nolberto Seo, leaves at this time. Patient is asleep and resting comfortably. Will continue to monitor.
[2019-02-28] VITALS (675 sets, daily range): BP systolic 104–1118; BP diastolic 49–83; PULSE 71–110; TEMP 98.6–101.4; O2SAT 60–100
--- NOTE | 2019-02-28 | NUR ---
Patient is sleeping upon entrance into the room. Patient awakens to voice. Follows commands, then quickly falls back asleep. Assessment complete. Patient tries to grab at stethoscope and move it when listening. Lungs are coarse with diminished bases and coarse crackles also in the bases. HR and rhythm regular with normal S1 and S2. Patient is currently in normal sinus rhythm in the 70's. Bowel sounds active x4. Vitals have remained stable. Patient is still tachypneic, rate at 28-32 breaths per minute. No signs of pain or distress. Urine output has been good. Will continue to monitor. Call light within reach.
--- NOTE | 2019-02-28 01:15 | NUR ---
Patient is awake at this time and has pulled apart the BiPAP mask. Attempted to redirect, but unsuccessful. Patient repeats "no, I can't do it. I just cant do it". Antianxiety meds to be provided.
--- NOTE | 2019-02-28 04:00 | NUR ---
Assessment complete. Patient sleeps between disturbances. Awakens to name. No changes from previous assessment. Patient's heart rate has decreased into the 70's. Patient has had over 2L of urine out so far. No evidence of patient being in pain or distress. Vitals have remained stable. No further needs at this time. Will continue to monitor. Call light within reach.
[2019-02-28 05:52] LABS: BASO % 0.5 % (0.0-2.0); EOS % 0.4 % (0-4.0); GRAN # 6.4 (1.4-6.5); GRAN % 78.6 % (42.2-75.2); LYMPH % 11.6 % (20.0-51.0); MEAN CELL VOLUME 86 fl (80.0-100.0); MEAN CORPUSCULAR HGB CONC 32 g/dl (33.0-37.0); MEAN PLATELET VOLUME 10.7 fl (7.4-10.4); MONO # 0.6 (0.1-0.6); MONO % 7.7 % (1.7-9.3); PLATELET COUNT 251 K/mm3 (130-400); RED BLOOD COUNT 3.43 M/mm3 (4.10-5.30); REDCELL DISTRIBUTION WIDTH-CV 13.7 % (11.5-14.5)
[2019-02-28 05:54] LABS: HEMATOCRIT 29.4 % (37.0-47.0); HEMOGLOBIN 9.3 g/dl (12.5-16.0); MEAN CORPUSCULAR HEMOGLOBIN 27 pg (27.0-31.0)
[2019-02-28 06:05] LABS: CALCIUM 8.4 mg/dL (8.4-10.2); CREATININE, serum 0.93 (0.52-1.25); MAGNESIUM 1.5 mg/dL (1.6-2.3); PHOSPHOROUS 3.5 mg/dL (2.5-4.5)
[2019-02-28 06:06] LABS: POTASSIUM 2.5 mmol/L (3.4-5.0)
--- NOTE | 2019-02-28 07:35 | NUR ---
Bedside report given to ROGE Terry
--- NOTE | 2019-02-28 08:38 | NUR ---
Bumex drip decreased to 0.5mg/hr or 5ml per verbal order from Dr. Curry.
[2019-02-28 08:59] LABS: ARTERIAL BLD GAS O2 SATURATION 97.4 % (92-100); ARTERIAL BLOOD GAS BASE EXCESS 1.3 (-2-2); ARTERIAL BLOOD GAS HCO3 23.1 meq/L (22-26); ARTERIAL BLOOD GAS PCO2 27.3 mmHg (35-45); ARTERIAL BLOOD GAS PO2 105.3 mmHg (80-100); ARTERIAL BLOOD GAS pH 7.55 (7.35-7.45)
--- NOTE | 2019-02-28 09:00 | NUR ---
Vapotherm in place, pt tolerating well - education provided to pt and visitors on the oxygen supply mechanism.
--- NOTE | 2019-02-28 11:57 | NUR ---
SW called patients' DPOA who lives in [place]. DPOA gave verbal auth to screen for 1.[facility], 2. [facility]. [facility] was faxed at [phone]. Awaiting screen results.
--- NOTE | 2019-02-28 12:00 | NUR ---
Pt sat up to 90 degrees, pt able to tolerate small amount of blenderized food and thickened liquid before becoming full. Pt states "feeling better, can I have some coke". Educated only intake needs to be high calorie high nutrient value food, and frequent blood sugar checks required while still on TPN - pt and visitors aware and understand
--- NOTE | 2019-02-28 12:54 | NUR ---
EtCO2 monitor applied. See RT notes for alarm parameter orders
--- NOTE | 2019-02-28 16:00 | NUR ---
[facility] conference call complete. Pt refusing voluntary admission for psych hospitalization. Reference number:[id number] - Kenisha is the health animal care taker at [facility]. Conference call with Pt's spouse DaynegladisKenisha and myself complete. updated, all questions invited and all answered. Kenisha stated she will file the proper paperwork to get pt admitted Pt udated on required mandatory psych admission to a hosptial, pt states "I will not go, I do not have to go. I dont need to go, I will be fine. I have to start a new job on Saturday." allowed to vist under my supervision for 5min d/t pt insistently repeating "does not love me anymore and I know he ditched town and left me for good". Pt happy to see , and tolerated visit well. understand and agrees to all unit rules and policies, he will be in waiting room until able to visit again.
--- NOTE | 2019-02-28 16:30 | NUR ---
Pt consumed small amount of strawberry shake delivered by dining services. Pt tolerated will with no coughing or other signs of aspiration.
[2019-02-28 19:33] LABS: MAGNESIUM 1.9 mg/dL (1.6-2.3)
[2019-02-28 19:37] LABS: POTASSIUM 2.9 mmol/L (3.4-5.0)
--- NOTE | 2019-02-28 21:55 | NUR ---
increased per drip titration protocol. patient was extremely agitated and was opal off her oxygen.
--- NOTE | 2019-02-28 21:56 | NUR ---
increased drip per titration protocol.
--- NOTE | 2019-02-28 21:57 | NUR ---
increased drip per drip titration protocol.
--- NOTE | 2019-02-28 22:01 | NUR ---
increased drip per protocol.
--- NOTE | 2019-02-28 22:25 | NUR ---
increased drip per drip protocol.
--- NOTE | 2019-02-28 22:26 | NUR ---
increased drip per protocol.
--- NOTE | 2019-02-28 23:00 | NUR ---
DISCONTINUED DRIP PER DOCTORS REQUESTS.
--- NOTE | 2019-02-28 23:09 | NUR ---
PATIENT CONVERTED BACK TO SINUS RHYTHM.
[2019-03-01] VITALS (589 sets, daily range): BP systolic 121–145; BP diastolic 56–78; PULSE 62–115; TEMP 98.6–99.3; O2SAT 80–99
--- NOTE | 2019-03-01 00:08 | NUR ---
INCREASED DRIP PER TITRATION ORDERS. PATIENT CONTINUED TO PULL OXYGEN OFF.
--- NOTE | 2019-03-01 00:15 | NUR ---
PATIENT IS VERY CONFUSED. CONTINUES TO PULL AT HER OXYGEN TUBING. PATIENTS VITALS ARE STABLE AT THE MOMENT AND SHE IS IN SINUS RHYTHM. WILL CONTINUE TO MONITOR THROUGHOUT SHIFT.
--- NOTE | 2019-03-01 00:25 | NUR ---
CALLED [facility] AND DISCUSSED PLACING MITS ON THE PATIENT TO PREVENT HER FROM TYREE AT HER OXYGEN TUBING.
[2019-03-01 04:10] LABS: CALCIUM 8.7 mg/dL (8.4-10.2); CREATININE, serum 0.96 (0.52-1.25); PHOSPHOROUS 3.3 mg/dL (2.5-4.5); POTASSIUM 4.2 mmol/L (3.4-5.0)
--- NOTE | 2019-03-01 07:00 | NUR ---
Bedside report recieved by ROGE Sanchez, all gtts reviewed. 20mEq Potassium Chloride infusing through 20g peripheral right antecubital IV. Infusion stopped, site assessed - no redness, tenderness or signs of extravasation present. Infusion restarted on PICC compatable port. MD Jose and MD Patricio notified
--- NOTE | 2019-03-01 07:11 | NUR ---
gave report to kimberly dorman.
--- NOTE | 2019-03-01 07:31 | NUR ---
Report received from Myla GUAN and care resumed.
--- NOTE | 2019-03-01 09:30 | NUR ---
Dr Curry in to see pt at this time.
--- NOTE | 2019-03-01 09:40 | NUR ---
Dr Garcia in to see pt at this time.
--- NOTE | 2019-03-01 09:55 | NUR ---
Dr Foote in to see pt at this time.
--- NOTE | 2019-03-01 10:51 | NUR ---
DECREASED FIO2 TO 55% AT THIS TIME. SPO2 99% HR 67 RR 28.
--- NOTE | 2019-03-01 12:15 | NUR ---
PT REMAINS ON AIRVO HIGH FLOW NASAL CANNULA. SETTINGS 40L/MIN; 37DEGREES; AND FIO2 DECREASED BY 5% AT THIS TIME TO 50%. SP02 100% AT THIS TIME. PT IS RESTING AND TOLERATING IT WELL. BIPAP REMAINS ON STANDBY AT THIS TIME.
--- NOTE | 2019-03-01 16:32 | NUR ---
Received call from Dr Mcgee stating PICC line was no longer in SVC but now in the Arygos? vein. He states unsure weather TPN would still be safe to infuse. Followed up with Dr Garcia who stated to hold TPN at this time and have AIVS address placement in the AM.
--- NOTE | 2019-03-01 19:09 | NUR ---
Report given to Francisca GUAN and care transfered.
--- NOTE | 2019-03-01 20:00 | NUR ---
Pt AXO x2, knows birthday, individuals around her, but unaware of date or where is at. Pt has confused conversation. Pt states she has pain in bilat hips, more on left side due to osteoarthritis.
[2019-03-02] VITALS (708 sets, daily range): BP systolic 119–149; BP diastolic 61–83; PULSE 88–101; TEMP 97.8–98.7; O2SAT 80–100
[2019-03-02 05:17] LABS: HEMOGLOBIN 10.3 g/dl (12.5-16.0); MEAN CELL VOLUME 90 fl (80.0-100.0); MEAN CORPUSCULAR HEMOGLOBIN 27 pg (27.0-31.0); MEAN CORPUSCULAR HGB CONC 30 g/dl (33.0-37.0); MEAN PLATELET VOLUME 10.6 fl (7.4-10.4); RED BLOOD COUNT 3.81 M/mm3 (4.10-5.30)
[2019-03-02 05:21] LABS: HEMATOCRIT 34.3 % (37.0-47.0)
[2019-03-02 05:22] LABS: PLATELET COUNT 365 K/mm3 (130-400)
[2019-03-02 05:30] LABS: CALCIUM 9.1 mg/dL (8.4-10.2); CREATININE, serum 0.84 (0.52-1.25); MAGNESIUM 2.1 mg/dL (1.6-2.3); PHOSPHOROUS 3.9 mg/dL (2.5-4.5); POTASSIUM 3.4 mmol/L (3.4-5.0)
[2019-03-02 06:31] LABS: EOSINOPHIL 1 % (0-4); LYMPHOCYTE 12 % (20.0-51.0); NEUTROPHILS 81 % (42.0-75.2); PLATELET ESTIMATE NORMAL (NORMAL)
--- NOTE | 2019-03-02 08:00 | NUR ---
Shift assessment complete at this time. Plan of care reviewed at bedside with patient et family. Additional time taken to address any other needs or concerns. Vitals stable at this time. Pt denies pain or any other discomfort. Bed in low position, call light within reach. Will continue to monitor.
--- NOTE | 2019-03-02 08:20 | NUR ---
reported PICC tip location kinked and probably in the azygos vein. PICC flushed with 60 mL normal saline with good blood return noted. We will repeat chest x-ray at 9 o'clock this morning. Chest x-ray reviewed and tip location and lower SVC. RN informed to use PICC catheter. Dr. Juares informed up tip location.
--- NOTE | 2019-03-02 10:39 | NUR ---
SW attended clinical rounds. Patient is more alert than last week when SW met with patient and family. IPR director is looking at patient to see if patient would be a good candidate for IPR. SW will also fax updates to fredy Smith.
--- NOTE | 2019-03-02 12:00 | NUR ---
Pt resting comfortably in bed. Denies pain or any other discomfort. Vitals stable at this time. Bed in low position, call light within reach. Will continue to monitor.
--- NOTE | 2019-03-02 16:00 | NUR ---
Pt resting comfortably in bed. Denies pain or any other discomfort. Vitals stable at this time. Bed in low and locked position, call light within reach. will continue to monitor.
--- NOTE | 2019-03-02 19:25 | NUR ---
Bedside report given to ROGE Espinosa.
--- NOTE | 2019-03-02 20:00 | NUR ---
PT AWARE OF SURROUNDINGS AND ABLE TO ANSWER QUESTIONS TO PRESIDENT, BIRTHDAY, AND WHERE SHE LIVES. PT UNABLE TO STATE THE CORRECT YEAR AND HER PRESENT LOCATION. BRIDGE OF NOSE IS NOW SCABBED. PT CONTINUES TO HAVE NO APPETITE, BUT LIKES TO DRINK COLD LIQUIDS. PT C/O RIGHT FOREARM ACHING; NO APPEARANT INJURY, REDNESS, WELLING. ONCE PULLING PTS PICC LINE BRACELET DOWN TO WRIST, PTS DISCOMFORT IMPROVED.
[2019-03-03] VITALS (897 sets, daily range): BP systolic 119–148; BP diastolic 60–75; PULSE 69–78; TEMP 97.5–98.6; O2SAT 30–100
[2019-03-03 05:33] LABS: HEMATOCRIT 32.6 % (37.0-47.0); HEMOGLOBIN 9.8 g/dl (12.5-16.0); MEAN CELL VOLUME 89 fl (80.0-100.0); MEAN CORPUSCULAR HEMOGLOBIN 27 pg (27.0-31.0); MEAN CORPUSCULAR HGB CONC 30 g/dl (33.0-37.0); MEAN PLATELET VOLUME 10.1 fl (7.4-10.4); PLATELET COUNT 310 K/mm3 (130-400); RED BLOOD COUNT 3.67 M/mm3 (4.10-5.30); REDCELL DISTRIBUTION WIDTH-CV 13.7 % (11.5-14.5)
[2019-03-03 05:46] LABS: CALCIUM 8.4 mg/dL (8.4-10.2); CREATININE, serum 0.7 (0.52-1.25); POTASSIUM 3.3 mmol/L (3.4-5.0)
[2019-03-03 05:54] LABS: MAGNESIUM 2.1 mg/dL (1.6-2.3); PHOSPHOROUS 2.6 mg/dL (2.5-4.5)
[2019-03-03 06:03] LABS: BAND 11 % (0-10); BASOPHIL 1 % (0-2); EOSINOPHIL 3 % (0-4); LYMPHOCYTE 16 % (20.0-51.0); METAMYELOCYTE 1 % (0-0); NEUTROPHILS 59 % (42.0-75.2)
[2019-03-03 06:04] LABS: HYPOCHROMIA 2+; PLATELET ESTIMATE NORMAL (NORMAL)
[2019-03-03 06:05] LABS: OVALOCYTES 1+
--- NOTE | 2019-03-03 06:30 | NUR ---
PT HAIR WASHED AND BRUSHED.
--- NOTE | 2019-03-03 07:10 | NUR ---
Bedside report received from ROGE Espinosa.
--- NOTE | 2019-03-03 07:20 | NUR ---
REPORT GIVEN TO ROGE ZAMUDIO.
--- NOTE | 2019-03-03 08:00 | NUR ---
Assessment complete, patient alert, et oriented to name, boyfriend at bedside, patient repositioned for comfort, AM care provided, fall precautions in place, bed alarm on for patient safety, call light within reach.
--- NOTE | 2019-03-03 08:05 | NUR ---
Erica,ST at bedside.
--- NOTE | 2019-03-03 09:30 | NUR ---
Dr. Juares at bedside with US machine.
--- NOTE | 2019-03-03 10:40 | NUR ---
Pt working with patient.
--- NOTE | 2019-03-03 10:52 | NUR ---
Patient reports "achy" feeling in chest, after getting up with PT. Dr. Juares notified, No new orders at this time, will just monitor.
--- NOTE | 2019-03-03 12:10 | NUR ---
Patient turned repositioned, incontinent of stool, patient denies pain at this time, daughter at bedside.
--- NOTE | 2019-03-03 16:30 | NUR ---
Patient very restless, continually attempts to get out of bed, keeps taking hi-dionne NC out of nose, bed alarm remains on for patient safety.
--- NOTE | 2019-03-03 18:23 | NUR ---
Family at bedside patient, and encouraging her to eat.
--- NOTE | 2019-03-03 19:35 | NUR ---
Bedside report given to ROGE Mesa.
[2019-03-04] VITALS (367 sets, daily range): BP systolic 124–155; BP diastolic 46–64; PULSE 69–74; TEMP 97.4–98.4; O2SAT 76–100
--- NOTE | 2019-03-04 03:58 | NUR ---
REPORT GIVEN TO ROGE BETANCOURT. PT WILL BE TRASFERRED TO ROOM 365. DAUGHTER NOTIFIED WELL.
[2019-03-04 06:16] LABS: MEAN CELL VOLUME 90 fl (80.0-100.0); MEAN CORPUSCULAR HGB CONC 30 g/dl (33.0-37.0); MEAN PLATELET VOLUME 10.3 fl (7.4-10.4); PLATELET COUNT 307 K/mm3 (130-400); RED BLOOD COUNT 3.58 M/mm3 (4.10-5.30); REDCELL DISTRIBUTION WIDTH-CV 13.6 % (11.5-14.5)
[2019-03-04 06:25] LABS: HEMATOCRIT 32.1 % (37.0-47.0); HEMOGLOBIN 9.6 g/dl (12.5-16.0); MEAN CORPUSCULAR HEMOGLOBIN 27 pg (27.0-31.0)
[2019-03-04 06:31] LABS: MAGNESIUM 2.3 mg/dL (1.6-2.3); PHOSPHOROUS 3.4 mg/dL (2.5-4.5)
[2019-03-04 06:38] LABS: PRE ALBUMIN 15.3 mg/dL (17.6-36.0)
[2019-03-04 07:29] LABS: EOSINOPHIL 1 % (0-4); LYMPHOCYTE 13 % (20.0-51.0); NEUTROPHILS 71 % (42.0-75.2); PLATELET ESTIMATE NORMAL (NORMAL)
--- NOTE | 2019-03-04 11:04 | NUR ---
SW attended clinical rounds. Patient will be moved up to the medical floor today. Patient is being followed by MANAN and David for post acute rehab. MEKHI will fax updates to David.
--- NOTE | 2019-03-04 13:40 | NUR ---
Report called to Lalo GUAN
--- NOTE | 2019-03-04 13:45 | NUR ---
Transferred to room 308 via wheelchair, room still in the cleaning process. [facility]. Patient to room 313 via wheelchair with daughter at side. OT requests patient stay up in WC to do therapy. Call light at side and Terri RN in room, states will let primary RN know of room change.
--- NOTE | 2019-03-04 14:39 | NUR ---
Patient arrived to the Medical floor from ICU at this time, she is in room 313, family present at ths time, she is up in her recliner chair, denies needs
--- NOTE | 2019-03-04 14:41 | NUR ---
PT GETTING READY TO NAP FOR FIRST TIME TODAY. SPO2 92% ON RA. PLACING PT ON 1LNC FOR NAP. PT HAS BEEN DOING WELL ON RA FOR MOST OF THE DAY UP UNTIL THIS POINT
[2019-03-05 03:37] VITALS: BP 137/53; PULSE 71; TEMP 98.4
[2019-03-05 07:29] VITALS: BP 128/55; PULSE 76; TEMP 98.2
[2019-03-05 08:09] LABS: HEMATOCRIT 33.7 % (37.0-47.0); HEMOGLOBIN 10.3 g/dl (12.5-16.0); MEAN CELL VOLUME 89 fl (80.0-100.0); MEAN CORPUSCULAR HEMOGLOBIN 27 pg (27.0-31.0); MEAN CORPUSCULAR HGB CONC 31 g/dl (33.0-37.0); MEAN PLATELET VOLUME 10.3 fl (7.4-10.4); PLATELET COUNT 332 K/mm3 (130-400); RED BLOOD COUNT 3.81 M/mm3 (4.10-5.30); REDCELL DISTRIBUTION WIDTH-CV 13.6 % (11.5-14.5)
[2019-03-05 08:19] LABS: CALCIUM 9.1 mg/dL (8.4-10.2); CREATININE, serum 0.79 (0.52-1.25); POTASSIUM 3.4 mmol/L (3.4-5.0)
--- NOTE | 2019-03-05 08:54 | NUR ---
Pt lying in bed, awakens to verbal stimuli. Medications crushed and put into applesauce. Morning assessment completed. Breathing even and unlabored, breath sounds clear on auscultation. pt denies any shortness of breath or chest pain. Dr. Juares in to complete a thoracentesis on pt. Consent signed. 250 ml of serosanguinous drained. Specimens collected and sent to lab. Pt lying in bed, denies any dizziness or shortness of breath. Post op vitals started. Vital signs stable.
[2019-03-05 09:56] LABS: BAND 4 % (0-10); EOSINOPHIL 2 % (0-4); LYMPHOCYTE 18 % (20.0-51.0); NEUTROPHILS 73 % (42.0-75.2)
[2019-03-05 09:57] LABS: PLATELET ESTIMATE NORMAL (NORMAL)
--- NOTE | 2019-03-05 10:00 | NUR ---
Mepalex applied to pts bottom, small red skin tear was bothering pt.
--- NOTE | 2019-03-05 10:05 | NUR ---
patient intact right upper arm. With sterile technique right upper arm PICC dressing change done with insertion site cleansed with ChloraPrep times one chlorhexidine impregnated disc applied, skin prep, StatLock, and Tegaderm applied. No signs or symptoms of IV complications noted. No concerns voiced. Arm wrapped with dressing to protect catheter.
[2019-03-05 10:07] LABS: PLEURAL FLUID RBC 27000 /mm3 (0-0); PLEURAL FLUID WBC 5607 /mm3
[2019-03-05 10:16] LABS: GLUCOSE,PLEURAL FLUID 78 mg/dL; TOTAL PROTEIN,PLEURAL FLUID 3.5 gm/dL
[2019-03-05 10:21] LABS: PLEURAL FLUID APPEARANCE CLOUDY; PLEURAL FLUID COLOR RED
[2019-03-05 12:27] VITALS: BP 116/49; PULSE 64; TEMP 98
--- NOTE | 2019-03-05 13:15 | NUR ---
SW contacted and faxed updates to Amy at [facility].
--- NOTE | 2019-03-05 15:43 | NUR ---
Amy, at [facility], reports that they can accept the patient for a skilled stay. SW to inform the patient and patient's and will continue to follow.
[2019-03-05 16:03] VITALS: BP 140/56; PULSE 76; TEMP 97.8
--- NOTE | 2019-03-05 16:30 | NUR ---
Removed jean catheter, removed 10cc from balloon. Provided pericare and removed catheter. No discharge noted and pt tolerated well. Helped pt get up to chair, c/o back pain from lying in bed. Will contiue to monitor, call light in reach.
--- NOTE | 2019-03-05 18:22 | NUR ---
Pt c/o pain to her back, administered prn tylenol with apple sauce. Pt refusing to eat, at bedside to encourage her to eat some more.
--- NOTE | 2019-03-05 19:29 | NUR ---
Pt lying in bed, breathing even and unlabored. Awakens to verbal stimuli. Denies any needs at this time. Hand off report given to Park GUAN.
[2019-03-05 19:42] VITALS: BP 133/64; PULSE 72; TEMP 98.3
--- NOTE | 2019-03-05 22:40 | NUR ---
Patient in bed, confused. States, she needs to get out of the chair. She is in bed. Patient oriented to person and place, but not time or situation. Denies pain. Oxygen checked, 88 on room air. Placed on 2L, 95% on 2L. Patient incontinent of bowel. Sammi-care provided, brief changed. Bed alarm on. Denies further needs at this time, will continue to assess.
[2019-03-05 23:13] VITALS: BP 145/69; PULSE 69; TEMP 97.7
[2019-03-06] VITALS (8 sets, daily range): BP systolic 113–139; BP diastolic 49–58; PULSE 65–76; TEMP 97.5–98.6
--- NOTE | 2019-03-06 | NUR ---
Bladder scan 350ml. Ambulated patient to [facility] with gait belt and max 2 assist. Patient was able to urinate, and had a BM. Urine unable to be measured d/t stool mixed with urine. Will bladder scan in 6 hours. Brief left off d/t stage 2 on bottom. Mepilex removed. Turned to the left with pillows.
--- NOTE | 2019-03-06 03:29 | NUR ---
Patient c/o chest pain. VS stable. Oxygen placed back on (patient keeps removing during moments of confusion). Repositioned in bed, patient states her pain is better. Notified NAM Renteria. Will reassess pain.
[2019-03-06 07:16] LABS: CALCIUM 8.9 mg/dL (8.4-10.2); CREATININE, serum 0.7 (0.52-1.25); MAGNESIUM 2.3 mg/dL (1.6-2.3); PHOSPHOROUS 3.6 mg/dL (2.5-4.5); POTASSIUM 3.4 mmol/L (3.4-5.0)
[2019-03-06] MEDS ORDERED: MEGACE 40MG40 MG/TAB PO (08:05)
[2019-03-06] MEDS ORDERED: XANAX .25M0.25 MG/TA PO (10:11)
[2019-03-06] MEDS ORDERED: BD POSIFLUSH SF10 ML IV (10:16)
[2019-03-06] MEDS ORDERED: LASIX 20MG TABL20 MG PO (10:16)
--- NOTE | 2019-03-06 11:33 | NUR ---
MEKHI attended clinical rounds. The grade checker, Dr. Juares, would like to monitor the patient through the weekend. MEKHI updated IPR Director, Emily. MEKHI also updated and faxed updates to Amy at [facility]. SW to continue to follow.
--- NOTE | 2019-03-06 11:48 | NUR ---
Pt stable this am and oxygen tritating and pt now on 1L via nasal cannula. Pt alert to person and place. Pt has fiance at bedside and daughter has been in to visit. Pt IV patent no redness or infiltration noted. Pt assisted by 2 up to BSC this am. Pt sitting up in recliner this am and being repositioned every 2 hours. Pt has fall precautions in place and denies needs at this time. Pt ate 100% of applesauce this am and now drinking a supplemental shake.
--- NOTE | 2019-03-06 12:48 | NUR ---
Pt stable and oxygen decreased to 1 L and pt saturation 96%. Pt taken off of oxygen and will recheck saturation and monitor closely. Pt alert and able to eat 25% of lunch and drank some tea. Pt fiance at bedside and pt denies further needs at this time. Pt sitting in chair with fall precautions in place.
--- NOTE | 2019-03-06 12:59 | NUR ---
Pt decided not to have thoracentesis this am per so will give Lovenox as ordered.
--- NOTE | 2019-03-06 14:35 | NUR ---
Pt stable and resting in bed laying on her side. Pt oxygen on a 1L via nasal cannula while sleeping. Pt's grandaughter here to visit this afternoon for a short time. Pt has fall precautions in place and PICC free of complications. Pt has call light in reach.
--- NOTE | 2019-03-06 19:36 | NUR ---
Pt stable and resting in chair with Nolberto at bedside. Pt report given to Mabel GUAN.
--- NOTE | 2019-03-06 20:28 | NUR ---
PT WAS IN CHAIR AND PIVOT TURN X2 ASSIST TO BED. PT RESTING WITH HOB AT 60 DEGREE ANGLE. BOYFRIEND AT BEDSIDE. PT DENIES PAIN OR DISCOMFORT. PT NOT AWARE OF PLACE OR TIME. PT HAS NO NEEDS AT THIS TIME, CALL LIGHT WITHIN REACH.
[2019-03-07] VITALS (10 sets, daily range): BP systolic 120–152; BP diastolic 51–71; PULSE 63–70; TEMP 97–98.1
--- NOTE | 2019-03-07 02:49 | NUR ---
UNEVENTFUL NIGHT, PT SLEEPING/RESTING WITH NO C/O PAIN OR DISCOMFORT. PT HAS BEEN REPOSITIONED AND CHANGED. PUT MEPILEX ON COCCYX AREA OR OPEN AREA. PT ADVISES THAT SHE HAS NO APPETITE FOR FOOD. PT HAS BEEN OFFERED WATER EVERYTIME WE GO IN ROOM AND MOST OF THE TIME SHE DECLINES. PT HAS CALL LIGHT WITHIN REACH AND NO FURTHER NEEDS.
[2019-03-07 06:39] LABS: MEAN CELL VOLUME 88 fl (80.0-100.0); MEAN CORPUSCULAR HGB CONC 31 g/dl (33.0-37.0); MEAN PLATELET VOLUME 10.6 fl (7.4-10.4); PLATELET COUNT 299 K/mm3 (130-400); RED BLOOD COUNT 3.55 M/mm3 (4.10-5.30); REDCELL DISTRIBUTION WIDTH-CV 13.5 % (11.5-14.5)
[2019-03-07 06:45] LABS: HEMATOCRIT 31.1 % (37.0-47.0); HEMOGLOBIN 9.5 g/dl (12.5-16.0); MEAN CORPUSCULAR HEMOGLOBIN 27 pg (27.0-31.0)
[2019-03-07 06:50] LABS: CALCIUM 8.8 mg/dL (8.4-10.2); CREATININE, serum 0.69 (0.52-1.25); POTASSIUM 3.3 mmol/L (3.4-5.0)
--- NOTE | 2019-03-07 07:10 | NUR ---
Received report, patient is observed resting in bed with eyes closed. All bed rails are up with padding in place. Respirations are even and non labored. No signs of pain on facial expression. Personal items and call light is within reach.
--- NOTE | 2019-03-07 07:30 | NUR ---
PT RESTING IN BED WITH HOB ELEVATED TO 45 DEGREE ANGLE. DENIES PAIN OR DISCOMFORT AND HAS NO NEEDS AT THIS TIME. CALL LIGHT WITHIN REACH.
[2019-03-07 09:28] LABS: BAND 4 % (0-10); EOSINOPHIL 5 % (0-4); LYMPHOCYTE 22 % (20.0-51.0); NEUTROPHILS 64 % (42.0-75.2); PLATELET ESTIMATE NORMAL (NORMAL)
--- NOTE | 2019-03-07 11:10 | NUR ---
Call placed for reminder for portable cxr post procedure, unable to reach.
[2019-03-07 11:33] LABS: GLUCOSE,PLEURAL FLUID 92 mg/dL; TOTAL PROTEIN,PLEURAL FLUID 3.6 gm/dL
[2019-03-07 11:36] LABS: PLEURAL FLUID RBC 16000 /mm3 (0-0); PLEURAL FLUID WBC 3125 /mm3
[2019-03-07 13:19] LABS: PLEURAL FLUID APPEARANCE HAZY; PLEURAL FLUID COLOR AMBER
--- NOTE | 2019-03-07 14:26 | NUR ---
[facility]
--- NOTE | 2019-03-07 17:54 | NUR ---
Patient is sitting up in reciner for supper. Was assisted from commode, mepilex to coccyx changed. Friend is at bedside. Personal items and call light is within reach.
--- NOTE | 2019-03-07 18:28 | NUR ---
Patient was up to commode. Medium soft bowel movement noted. Mepilex dessing changed to coccyx. Coccyx is noted to be pink in color, small amount of skin peeled off area. Skin is blanchable. Assisted to recliner after dressing change.
--- NOTE | 2019-03-07 21:11 | NUR ---
PT IN BED WITH HOB ELEVATED TO 45 DEGREE ANGLE. PT HAD THOROCENTESIS DONE TODAY ON OPPOSIT SIDE FROM THE OTHER DAY IS WHAT PT STATES AND THAT SHE HAS NO PAIN FROM IT. PT HAD BANDAGE ON RIGHT SIDE OF MID-BACK THAT WAS C/D/I. NO NEEDS AT THIS TIME, CALL LIGHT WITHIN REACH.
--- NOTE | 2019-03-08 02:25 | NUR ---
PT WAS CHANGED OF INCONTINENT URINE, MEPILEX ON COCCYX AREA THAT IS C/D/I. PT WANTED TO SIT IN RECLINER. PT WAS ASSISTED INTO RECLINED. PT IS A 2 PERSON ASSIST AND PIVOT TRANSFER. PT WAS NOT ABLE TO HELP US PUT HER IN HER RECLINER. PT RESTING IN HER RECLINER AT THIS TIME. PT SEEMS TO SLIDE DOWN IN HER RECLINER AND IN BED. PT WAS BUSTED UP IN HER RECLINER AND BACK OF RECLINER WAS RECLINED MORE. PT HAS CHAIR ALARM ON AND CALL LIGHT WITHIN REACH.
[2019-03-08 04:02] VITALS: BP 158/57; PULSE 73; TEMP 97.6
[2019-03-08 06:15] LABS: BASO # 0.1 (0.0-0.2); BASO % 0.9 % (0.0-2.0); EOS # 0.1 (0.0-0.7); EOS % 2.1 % (0-4.0); GRAN # 4.8 (1.4-6.5); GRAN % 72.3 % (42.2-75.2); LYMPH % 14.9 % (20.0-51.0); MEAN CELL VOLUME 87 fl (80.0-100.0); MEAN CORPUSCULAR HGB CONC 30 g/dl (33.0-37.0); MEAN PLATELET VOLUME 10.9 fl (7.4-10.4); MONO # 0.6 (0.1-0.6); MONO % 8.9 % (1.7-9.3); PLATELET COUNT 318 K/mm3 (130-400); RED BLOOD COUNT 3.62 M/mm3 (4.10-5.30); REDCELL DISTRIBUTION WIDTH-CV 13.5 % (11.5-14.5)
--- NOTE | 2019-03-08 06:15 | NUR ---
PT WAS PUT BACK INTO BED AND CHANGED. PT HAD A BOWEL MOVEMENT THAT WAS BLACK IN COLOR THAT WAS LIQUID, NERI CARE DONE. PT WAS ASKING WHERE HER SISTER WAS. PT WAS GIVEN HER CELLPHONE REQUESTED AND PT DID NOT KNOW HOW TO USE IT. PT RESTING IN BED WITH HOB ELEVATED TO 45 DEGREE ANGLE.
[2019-03-08 06:21] LABS: HEMATOCRIT 31.6 % (37.0-47.0); HEMOGLOBIN 9.6 g/dl (12.5-16.0); MEAN CORPUSCULAR HEMOGLOBIN 27 pg (27.0-31.0)
[2019-03-08 06:29] LABS: CALCIUM 8.7 mg/dL (8.4-10.2); CREATININE, serum 0.65 (0.52-1.25); MAGNESIUM 2.1 mg/dL (1.6-2.3)
[2019-03-08 07:47] VITALS: BP 162/63; PULSE 73; TEMP 97.6
--- NOTE | 2019-03-08 09:35 | NUR ---
Pt assessment complete. Pt up in chair at this time. She reports she is very tired. No pain at this time. She denies any N/V, states she is not hungry. Took pills without complications in applesauce. No SOB. Pt assisted to the cammode with 2 assist. Large soft formed BM, pericare and linen change provided. Pt has friend at bedside. No needs at this time. Call light within reach, chair alarm in place.
[2019-03-08 12:55] VITALS: BP 126/56; PULSE 72; TEMP 97.4
[2019-03-08 16:33] VITALS: BP 145/50; PULSE 69; TEMP 97.8
--- NOTE | 2019-03-08 18:31 | NUR ---
Pt had intermittent confusion through the day. Reoriented easily. Several BM's, soft formed. Breathing even and unlabored on RA. No pain reported. No seizures visualized through the shift. Call light within reach, bed alarm in place.
--- NOTE | 2019-03-08 18:52 | NUR ---
Pt ate some of chicken and noodles tonight for dinner. Approximately 10 bites.
--- NOTE | 2019-03-08 20:00 | NUR ---
PT IN BED WITH HOB ELEVATED TO 45 DEGREE ANGLE. PT DENIES PAIN OR DISCOMFORT AND NO NEEDS AT THIS TIME. PT ATE VERY LITTLE OF HER SUPPER. FAMILY WAS HERE EARLIER AND LEFT. CALL LIGHT WITHIN REACH.
[2019-03-08 20:16] VITALS: BP 140/55; PULSE 69; TEMP 98
[2019-03-09 00:32] VITALS: BP 139/67; PULSE 72; TEMP 98.3
--- NOTE | 2019-03-09 03:15 | NUR ---
PT SLEEP/RESTING IN BED, WITH HOB ELEVATED TO 30 DEGEE ANGLE, NO S/S OF PAIN OR DISCOMFORT NOTED. CALL LIGHT WITHIN REACH.
[2019-03-09 04:21] VITALS: BP 148/56; PULSE 67; TEMP 98.1
--- NOTE | 2019-03-09 05:39 | NUR ---
PT WAS AWAKE ON AND OFF MOST OF THE NIGHT. PT HAD A BOWEL MOVEMENT AND GOT BM ALL OVER HERSELF AND THE BED. PT WAS GIVEN A BED BATH AND BEDDING WAS CHANGED. PT WAS CALLING OUT FOR FAMILY, TRIED TO REDIRECT HER BUT SHE WOULD BE OKAY FOR A FEW MINUTES AND THEN START HOLLERING OUT. PT WAS ANXIOUS TRYING TO SLIDE OUT OF BED AND PULLING ON GOWN. PT WAS GIVEN ATIVAN FOR ANXIETY. PT FELL ASLEEP SHORTLY AFTER GIVING ATIVAN AND IS NOW RESTING WELL. PT'S RESP EVEN AND UNLABORED, O2 AT 2L/NC ON PT. BED ALARM ON AND CALL LIGHT WITHIN REACH.
[2019-03-09 05:46] LABS: BASO % 0.6 % (0.0-2.0); EOS # 0.1 (0.0-0.7); EOS % 1.6 % (0-4.0); GRAN # 5.1 (1.4-6.5); GRAN % 75.9 % (42.2-75.2); LYMPH # 0.9 (1.2-3.4); LYMPH % 12.6 % (20.0-51.0); MEAN CELL VOLUME 87 fl (80.0-100.0); MEAN CORPUSCULAR HGB CONC 31 g/dl (33.0-37.0); MEAN PLATELET VOLUME 10.6 fl (7.4-10.4); MONO # 0.6 (0.1-0.6); MONO % 8.6 % (1.7-9.3); PLATELET COUNT 309 K/mm3 (130-400); RED BLOOD COUNT 3.43 M/mm3 (4.10-5.30); REDCELL DISTRIBUTION WIDTH-CV 13.4 % (11.5-14.5)
[2019-03-09 05:57] LABS: CALCIUM 8.3 mg/dL (8.4-10.2); CREATININE, serum 0.63 (0.52-1.25); PHOSPHOROUS 3.3 mg/dL (2.5-4.5); POTASSIUM 3.1 mmol/L (3.4-5.0)
[2019-03-09 06:04] LABS: HEMATOCRIT 29.7 % (37.0-47.0); HEMOGLOBIN 9.2 g/dl (12.5-16.0); MEAN CORPUSCULAR HEMOGLOBIN 27 pg (27.0-31.0)
[2019-03-09 08:14] VITALS: BP 123/57; PULSE 72; TEMP 97.8
[2019-03-09] MEDS ORDERED: NAMENDA5 MG PO (09:20)
[2019-03-09] MEDS ORDERED: CLEOCIN HCL300 MG PO (09:20)
[2019-03-09] MEDS ORDERED: ELIQUIS 5MG PO (09:46)
[2019-03-09] MEDS ORDERED: PACERONE400 MG PO (10:01)
--- NOTE | 2019-03-09 10:51 | NUR ---
SW attended clinical rounds. Patient was accepted to [facility] and will discharge there today. SW also informed patient's daughter/DPOA, Whitney.
--- NOTE | 2019-03-09 13:24 | NUR ---
Pt IV antibiotic infused with no problem. Ran through the purple port. Daughter at bedside.
--- NOTE | 2019-03-09 15:39 | NUR ---
Up in chair for lunch. Incont. of moderate amt urine. Voided small amt on commode. Lunch taken at 10%. Voided after lunch 150mL rita urine.Dual PICC line in upper right arm, both flushed. Sleepy today. Intermittent confusion. Report given to INR. INR staff here to transfer pt to rehab per w/c.
== END 2019-03-09 14:00 | DRG 871 ==
LOC: COL.ER 00:50 → SURG 03:27 → ICU 03:27 → SURG 02-24 10:15 → ICU 02-24 20:15 → MEDICAL 02-25 16:12 → ICU 02-25 22:30 → MEDICAL 03-04 14:01
PROVIDERS: Emergency Medicine; Hospitalist; Internal Medicine Cardiovascular Disease; Internal Medicine Critical Care Medicine; Internal Medicine Pulmonary Disease; Nurse Practitioner Family; Physician Assistant; ADMIT Internal Medicine Pulmonary Disease
PROC: 009U3ZX Drainage of Spinal Canal, Percutaneous Approach, Diagnostic (ICD-10-PCS; principal; 2019-02-25)
PROC: 02HV33Z Insertion of Infusion Device into Superior Vena Cava, Percutaneous Approach (ICD-10-PCS; 2019-02-27)
PROC: 0W9B3ZZ Drainage of Left Pleural Cavity, Percutaneous Approach (ICD-10-PCS; 2019-03-05)
PROC: 0W993ZZ Drainage of Right Pleural Cavity, Percutaneous Approach (ICD-10-PCS; 2019-03-07)
DX: A41.9 Sepsis, unspecified organism (principal); J18.1 Lobar pneumonia, unspecified organism; J96.01 Acute respiratory failure with hypoxia; E46 Unspecified protein-calorie malnutrition; G93.40 Encephalopathy, unspecified; J90 Pleural effusion, not elsewhere classified; I50.30 Unspecified diastolic (congestive) heart failure; E44.0 Moderate protein-calorie malnutrition; B37.81 Candidal esophagitis; R65.10 Systemic inflammatory response syndrome (SIRS) of non-infectious origin without acute organ dysfunction; Z66 Do not resuscitate; I11.0 Hypertensive heart disease with heart failure; E87.6 Hypokalemia; E78.5 Hyperlipidemia, unspecified; I48.91 Unspecified atrial fibrillation; G40.909 Epilepsy, unspecified, not intractable, without status epilepticus; E03.9 Hypothyroidism, unspecified; F03.90 Unspecified dementia, unspecified severity, without behavioral disturbance, psychotic disturbance, mood disturbance, and anxiety; M06.9 Rheumatoid arthritis, unspecified; J45.909 Unspecified asthma, uncomplicated; I25.10 Atherosclerotic heart disease of native coronary artery without angina pectoris; D64.9 Anemia, unspecified; I08.3 Combined rheumatic disorders of mitral, aortic and tricuspid valves; I44.7 Left bundle-branch block, unspecified; E83.39 Other disorders of phosphorus metabolism; I48.2 Chronic atrial fibrillation; Z68.22 Body mass index [BMI] 22.0-22.9, adult; M19.012 Primary osteoarthritis, left shoulder; E83.42 Hypomagnesemia; Z88.1 Allergy status to other antibiotic agents; Z95.828 Presence of other vascular implants and grafts
CPT/HCPCS: OP; 99222; 99231-AI; 99232-AI; 99233-AI; 99239; A4216; A4217; A4314; C1751; C1892; G0378; J0282; J0610; J0696; J1630; J1650; J1815; J1940; J1953; J2060; J2185; J2270; J2543; J3370; J3475; J3480; J7030; J7050; J7060

== ENCOUNTER 2019-03-09 14:00 | Inpatient (IN) | payer MEDICARE, BC ==
[~2019-03-09] VITALS: Ht 157.5 cm; Wt 55.3 kg
[~2019-03-09 14:00] MED LIST changes: +BD POSIFLUSH SF10 ML IV; +CALCIUM CARBON650 M2 PO; +CARTIA XT240 MG PO; +CLEOCIN HCL300 MG PO; +FLOVENT 220MCG7.9 GM IH; +FLOVENT DI50 MCG/Act IH; +HYGROTON 2525 MG/TAB PO; +K-DUR20 MEQ PO; +LASIX 20MG TABL20 MG PO; +MEGACE 40MG40 MG/TAB PO; +MULTI VITAMINS1 TAB PO; +NAMENDA5 MG PO; +NATURAL IRON65 MG PO; +NIRAVAM0.25 MG PO; +PACERONE400 MG PO; +PROVENTIL0.09 MG/A1 IH; +TYLENOL 8 HR PO; +VITAMIN B COMPL1 SGL PO; +VITAMIN D 1001000 IU PO
--- NOTE | 2019-03-09 14:00 | NUR ---
Patient arrived from [facility] medical unit via wheelchair with daughter by her side. Patient resting in recliner at this time. Denies pain.
[2019-03-09 15:09] VITALS: BP 123/42; PULSE 81; TEMP 97.3
[2019-03-09 18:00] VITALS: BP 123/42; PULSE 81; TEMP 97.3
--- NOTE | 2019-03-09 20:30 | NUR ---
Patient calls for assist and up 2 assist pivot transfer to BSC. Incontinent of urine and changed/cleaned and linen/gown changed. Rests back in bed. Denies pain. Forgetful but oriented x 4. Asks if she can go home now and reviewed staying for therapy/strengthening. Bed alarm on.
--- NOTE | 2019-03-10 01:07 | NUR ---
Patient rests with eyes closed. Respirations with ease.
--- NOTE | 2019-03-10 02:37 | NUR ---
Patient rests with eyes closed. Respirations with ease.
[2019-03-10 04:01] VITALS: BP 157/65; PULSE 70; TEMP 98.3
--- NOTE | 2019-03-10 05:59 | NUR ---
Patient rests with eyes closed. Respirations with ease.
--- NOTE | 2019-03-10 09:35 | NUR ---
Patient did not eat well this morning. She refused most of her meal saying that she was not hungry. It took approximatly 30 minutes for her to take her morning pills. Half of them she requested be crushed and the others were taken whole with pudding. She had difficulty feeling like they were stuck in her throat. She did finally get them down ok. Will continue to monitor.
--- NOTE | 2019-03-10 10:02 | NUR ---
MEKHI met with the patient to discuss a discharge plan. The pt lives in [place] with her best friend, Nolberto. The pt uses a cane daily. The pt reports she at times does not have energy for showers and goes to the beautician to get her hair done. The pt has not ever had home health services. The pt's PCP is Dr. Olson. The pt receives her medications from [facility] and reports no difficulties obtaining them. The pt has a living will in the EMR. MEKHI provided a DPOA-HC form for the pt. Nolberto will provide transporation home once the patient discharges. MEKHI will continue to follow to assist with any discharge needs.
[2019-03-10 13:00] VITALS: BP 102/50; PULSE 76; TEMP 98.5
[2019-03-10 16:54] VITALS: BP 145/68; PULSE 66; TEMP 97.5
--- NOTE | 2019-03-10 20:00 | NUR ---
Patient mod 2 assist to BSC and back to bed. Had small dk soft BM and nurse wipes. Max assist with legs into bed. Male visitor at bedside. Mepilex to buttucks CDI. Denies pain. Heels floated on pillow.
--- NOTE | 2019-03-10 21:45 | NUR ---
Capsules given whole in applesauce and rest of meds crushed and given in applesauce. Patient takes a few bites of icecream for snack. Denies pain or needs.
--- NOTE | 2019-03-11 02:00 | NUR ---
Patient has been resting with eyes closed. Respirations with ease.
[2019-03-11 04:51] VITALS: BP 162/67; PULSE 72; TEMP 97.8
--- NOTE | 2019-03-11 05:16 | NUR ---
PATIENT REPORTS SHE SLEPT SOUNDLY THROUGH THE NIGHT. UP TO BSC MAX 2 ASSIST AND VOIDS/HAS SMALL BM. RESTS BACK IN BED. DENIES PAIN.
--- NOTE | 2019-03-11 07:30 | NUR ---
Patient got up to BSC with assist of nursing staff. She had a large incontinent bowel movement. Denies pain and nausea. Patient does not tolerate standing for very long before needing to sit down. She has a stage II pressure ulcer to her coccyx. Dressing changed. No other changes at this time. Call light within reach.
[2019-03-11 13:49] VITALS: BP 123/52; PULSE 75; TEMP 97.7
--- NOTE | 2019-03-11 14:04 | NUR ---
The patient and family wanted to complete DPOA-HC and general POA. SW contacted Jacoby to notorize the paperwork for the family.
--- NOTE | 2019-03-11 15:00 | NUR ---
PICC intact right upper arm with sterile dressing change done with insertion site cleansed with chloraprep x 1, chlorhexidine impregnated disk applied, skin prep, stat lock, and tegaderm applied. no signs or symptoms of IV complications noted. no concerns voiced. re-wrapped with sohail to protect catheter.
--- NOTE | 2019-03-11 15:28 | NUR ---
SW met with the patient to review team conference notes. SW discussed how the team will re-evaluate next week. The pt did not have any questions or concerns at this time. SW will continue to follow.
--- NOTE | 2019-03-11 17:34 | NUR ---
Patient has been doing well this afternoon. She has been up to the BSC twice since her last therapy. Changed the dressing to her coccyx this last time because it was coming off. Patient denies pain. She was upset because she could not get through to her but he is here now. She is sitting up in the chair eating dinner. No other changes at this time. Call light within reach.
--- NOTE | 2019-03-11 21:00 | NUR ---
PT WAKES EASILY. DROWSY. ORIENTED BUT ALITTLE FORGETFUL. PLEASANT AND COOPERATIVE. TAKES MEDS CRUSHED IN APPLESAUCE. WEARS PULL UPS FOR INCONTINENCE. DENIES PAIN AT THIS TIME. CALL LIGHT IN REACH. BED ALARM SET.
[2019-03-12 05:37] VITALS: BP 144/57; PULSE 70; TEMP 97.6
--- NOTE | 2019-03-12 07:23 | NUR ---
Report from ROGE Rojas. Room service reported and pt called to ask for assistance as she was sliding out of the recliner which had a seat cushion in it with the foot rest up. Two assist pt back to bed, legs giving out underneath her, set up assist for breakfast, bed alarm on, yellow gripper socks in place, call lt in reach.
--- NOTE | 2019-03-12 08:08 | NUR ---
Pt took small pills, up to size of tylenol, whole and one at a time with applesauce. Needed to crush larger pills and give in applesauce. SO Nolberto here. Set up for oral cares.
--- NOTE | 2019-03-12 12:45 | NUR ---
Daughter visiting in room, enc pt to eat more lunch. Pt rather drink ensure. Took abx caps one at a time with socorro frey.
--- NOTE | 2019-03-12 14:19 | NUR ---
Pt repositioned in bed, air mattress in place, daughter Conchita left. Bed alarm on, call lt in reach.
[2019-03-12 15:53] VITALS: BP 148/54; PULSE 67; TEMP 97.8
--- NOTE | 2019-03-12 17:13 | NUR ---
Pt's SO Nolberto visiting, enc pt to eat, removed chicken salad filling from sandwich and enc pt to eat that.
--- NOTE | 2019-03-12 18:21 | NUR ---
Pt in bed with alarm on, call lt in reach, Nolberto visiting. Pt took pills with socorro frey.
--- NOTE | 2019-03-12 20:00 | NUR ---
PT IN BED WITH HOB ELEVATED AND BOYFRIEND AT BEDSIDE AT THIS TIME. PT HAS EYES CLOSED RESTING/SLEEPING WITH NO S/S OF PAIN OR DISCOMFORT NOTED. CALL LIGHT WITHIN REACH.
--- NOTE | 2019-03-12 23:03 | NUR ---
PT SLEEPING RESTING WITH NO S/S OF PAIN OR DISCOMFORT NOTED, CALL LIGHT WITHIN REACH.
--- NOTE | 2019-03-13 00:51 | NUR ---
PT WAS ASLEEP BUT HAD TO AWAKEN PT TO TAKE ABX THAT IS SCHEDULED FOR 0000. PT WOKE UP AND THOUGHT THAT SHE HAD TO GET READY FOR CHURGE. TRIED TO REDIRECT PT AND ADVISE HER THAT IT IS SATURDAY. PT STILL IN BED WATCHING TV AT THIS TIME. CALL LIGHT WITHIN REACH AND BED ALARM ON.
--- NOTE | 2019-03-13 04:26 | NUR ---
ASSISTED PT UP TO BEDSIDE COMMODE. PT HAD ALREADY HAD AN INCONTINENT EPISODE OF URINE IN HER BRIEF. CHANGED BRIEF AND PT ONLY HAD A LITTLE OUTPUT IN COMMODE. NERI CARE PROVIDED AND ASSISTED BACK IN BED. PT WAS A TWO ASSIST. PT WAS NOT ABLE TO BEAR WEIGHT TO ASSIST WITH TRANSFERING. PT CONCERNED WITH HAVNG PHONE IN HAND, GAVE HER, HER PHONE AND COVERED HER UP AND SHE HAD NO FURTHER NEEDS, CALL LIGHT WITHIN REACH.
[2019-03-13 05:24] VITALS: BP 156/61; PULSE 64; TEMP 98.3
[2019-03-13 07:02] LABS: BASO # 0.1 (0.0-0.2); BASO % 1.2 % (0.0-2.0); EOS # 0.2 (0.0-0.7); LYMPH % 16.7 % (20.0-51.0); MEAN CELL VOLUME 86 fl (80.0-100.0); MEAN CORPUSCULAR HGB CONC 31 g/dl (33.0-37.0); MEAN PLATELET VOLUME 10.3 fl (7.4-10.4); MONO # 0.6 (0.1-0.6); MONO % 10.1 % (1.7-9.3); PLATELET COUNT 332 K/mm3 (130-400); RED BLOOD COUNT 3.57 M/mm3 (4.10-5.30); REDCELL DISTRIBUTION WIDTH-CV 13.4 % (11.5-14.5)
[2019-03-13 07:14] LABS: CREATININE, serum 0.64 (0.52-1.25); MAGNESIUM 1.7 mg/dL (1.6-2.3); POTASSIUM 3.6 mmol/L (3.4-5.0)
[2019-03-13 07:19] LABS: HEMATOCRIT 30.8 % (37.0-47.0); HEMOGLOBIN 9.5 g/dl (12.5-16.0); MEAN CORPUSCULAR HEMOGLOBIN 27 pg (27.0-31.0)
--- NOTE | 2019-03-13 08:29 | NUR ---
Report from ROGE Monroe. Pt took meds crushed with applesauce, poor appetite, SO Nolberto visited briefly this morning. Pt in yellow gown and grippers.
--- NOTE | 2019-03-13 13:18 | NUR ---
Changed dressing to coccyx, cleansed gently with wipe, old dried skin to nathan buttocks still present, granulated 3 cm area on rt buttocks blanches, applied mastitol and new Alevyn coccyx dressing.
--- NOTE | 2019-03-13 15:47 | NUR ---
Pt asleep in bed on rt side
--- NOTE | 2019-03-13 17:43 | NUR ---
SO Nolberto visiting, set up/assist with supper.
[2019-03-13 17:58] VITALS: BP 140/54; PULSE 75; TEMP 97.8
--- NOTE | 2019-03-13 23:30 | NUR ---
Shift assessment complete. Patient slightly confused, easy to reorient. States she needs to call her s/o Nolberto, because she does not remember him visiting. Per daughter, confusion may lessen, and help her sleep, if the radio is turned on/tv off. Denies pain. Repositione in bed. Denies further needs at this time. Will continue to monitor.
[2019-03-14 05:17] VITALS: BP 153/69; PULSE 72; TEMP 97.6
--- NOTE | 2019-03-14 05:47 | NUR ---
Patient in bed, resting. Denies pain. Said she could probably use the bedpan, but fell back asleep. Brief dry. Will continue to monitor.
--- NOTE | 2019-03-14 10:18 | NUR ---
Patient currently attending group therapy at this time. Patient ate 50% of her breakfast this morning. She was a one person pivot transfer with gait belt to the wheelchair and then to the bathroom. Patient used grab bars and was able to help with pulling pants up and down. Patient had a visitor this morning. She has been in a pleasent mood. Therapy assisted patient with getting dressed this morning. Denied pain or questions this mornig. Patient took small pills whole with applesauce and large pills were crushed and put with applesauce.
[2019-03-14 16:21] VITALS: BP 142/58; PULSE 67; TEMP 97.6
--- NOTE | 2019-03-14 18:29 | NUR ---
Patients boyfriend took her for a wheelchair ride outside for a bit this evening to get her some fresh air. Patient currently resting in wheelchair watching TV with Nolberto.
--- NOTE | 2019-03-14 23:10 | NUR ---
Patient noted to be very tired tonight. Noted to be a little agitated with the nurse when she came into the room for evening medications, because she was woke up. After her medications were given, she attempted to call a few people on her phone. Patient denied any other needs. Currently resting in her room with radio on, lights off, eyes closed, and call light in reach. Will continue to monitor patient.
[2019-03-15 05:31] VITALS: BP 161/65; PULSE 70; TEMP 97.5
--- NOTE | 2019-03-15 07:10 | NUR ---
Patient slept well throughout the night. No complaints of pain. Report given to ROGE Pate.
--- NOTE | 2019-03-15 08:00 | NUR ---
PICC LINE FLUSHED WITH 10 CC, 5 CC IN EACH PORT. GOOD BRISK BLOOD RETURN NOTED TO BOTH. CREAM FLAGYL APPLIED TO NOSE PER INSTRUCIONS. PT WAS GIVEN MEDS CRUSHED IN APPLESAUCE. SHE TOLERATED OK. PT WAS WET IN BRIEF, WAS CHANGED AND REPOSITIONED TO RIGHT SIDE. DRESSING TO COCCYX IS INTACT AND NO DRAINAGE NOTED TO SITE. BARRIER CREAM APPLIED TO PERIAREA. HERE AND WENT FOR COFFEE AT THAT TIME. CALL LIGHT IN REACH.
--- NOTE | 2019-03-15 09:52 | NUR ---
IN ROOM AND PT IS SLEEPING
--- NOTE | 2019-03-15 11:00 | NUR ---
STAFF GOT PT OUT OF BED AND TO RECLINER
--- NOTE | 2019-03-15 13:40 | NUR ---
TRANSFERED WITH GAITBELT AND WALKER TO BED. STATES SHE WILL BE ASLEEP IN 5 MINUTES.
[2019-03-15 17:10] VITALS: BP 137/61; PULSE 70; TEMP 98
--- NOTE | 2019-03-15 17:37 | NUR ---
PT INCONTINET OF URINE IN BED. PT CHANGED AND THEN TAKEN ACROSS THE HALLWAY FOR SUPPER WITH HER FAMILY
--- NOTE | 2019-03-16 02:45 | NUR ---
Patient assisted into bed after toileting around 1999 this evening with one assist from staff. Medications administered crushed in pudding. Refuses bedtime shake. Patient has been sleeping well so far. Repositioning and incontinence checked completed every 2 hours and PRN. Denies any needs when staff is assisting her. Will continue to monitor.
[2019-03-16 05:33] VITALS: BP 146/48; PULSE 67; TEMP 98.8
[2019-03-16 07:11] LABS: HEMOGLOBIN 9.9 g/dl (12.5-16.0); MEAN CELL VOLUME 85 fl (80.0-100.0); MEAN CORPUSCULAR HEMOGLOBIN 26 pg (27.0-31.0); MEAN CORPUSCULAR HGB CONC 31 g/dl (33.0-37.0); MEAN PLATELET VOLUME 10.2 fl (7.4-10.4); PLATELET COUNT 276 K/mm3 (130-400); RED BLOOD COUNT 3.75 M/mm3 (4.10-5.30); REDCELL DISTRIBUTION WIDTH-CV 14.1 % (11.5-14.5)
[2019-03-16 07:22] LABS: CALCIUM 9.5 mg/dL (8.4-10.2); CREATININE, serum 0.65 (0.52-1.25); MAGNESIUM 1.7 mg/dL (1.6-2.3); POTASSIUM 3.8 mmol/L (3.4-5.0)
[2019-03-16 07:52] LABS: BAND 3 % (0-10); EOSINOPHIL 2 % (0-4); LYMPHOCYTE 18 % (20.0-51.0); NEUTROPHILS 71 % (42.0-75.2); PLATELET ESTIMATE NORMAL (NORMAL)
--- NOTE | 2019-03-16 07:59 | NUR ---
Report from ROGE Moore. Pt assisted to BSC for Incont BM, provided total assist for cleaning and changing, returned to bed, air mattress in place, set up assist for breakfast, Nolberto here.
--- NOTE | 2019-03-16 10:56 | NUR ---
Pt's daughter and another woman visiting, pt sitting up in chair with own seat cushion, chair alarm on. Call lt in reach.
--- NOTE | 2019-03-16 13:27 | NUR ---
Changed dressing to coccyx as recommended by wound care staff. Naga buttocks wounds granulated, skin intact, old peeling skin came off with gentle cleansing, skin blanchable. Midline blister to gluteal cleft, 0.5 cm. Applied mastitol skin prep and new mepilex foam dressing and dated. Pt fabienne well. Laid down in recliner with seat cushion, chair alarm, call lt in reach.
--- NOTE | 2019-03-16 13:51 | NUR ---
SW met with the patient to introduce oneself and to follow up after the weekend. The patient reports that she is doing well and just trying to take a late afternoon nap. The patient had no questions or concerns for SW at this time. States she just needs to get some sleep and rest. SW to continue to follow.
[2019-03-16 15:57] VITALS: BP 143/56; PULSE 66; TEMP 97.9
--- NOTE | 2019-03-16 17:33 | NUR ---
Pt called to toilet, then went in wc with Nolberto off unit
--- NOTE | 2019-03-16 20:00 | NUR ---
HS meds all reviewed and given crushed in pudding. Patient drowsy but oriented. Denies pain or needs.
--- NOTE | 2019-03-16 23:30 | NUR ---
Patient repositioned over and up in bed. Returns to resting with eyes closed.
--- NOTE | 2019-03-17 02:00 | NUR ---
Patient resting with eyes closed. Respirations with ease.
--- NOTE | 2019-03-17 03:23 | NUR ---
Patient awakened and continent. Denies need for toileting.
[2019-03-17 03:25] VITALS: BP 161/66; PULSE 70; TEMP 99
--- NOTE | 2019-03-17 05:29 | NUR ---
Awakened for am meds given in pudding. Has difficult time swallowing capsules. Declines getting up to BSC.
--- NOTE | 2019-03-17 09:25 | NUR ---
Report from ROGE Alexandre. Pt to chair for breakfast, SO Nolberto at bedside enc to eat. Pt took three smallest pills whole one at a time in van pudding. Crushed rest of pills with puree. Pt alert, pleasant, denies pain, feet up in recliner, call lt in reach. PICC without complications. Gripper socks in place.
--- NOTE | 2019-03-17 11:27 | NUR ---
Pt's daughter Conchita and grandson visiting, brought [employer]" sandwich for pt's lunch. In chair with own seat cushion in place, call lt and chair alarm on.
--- NOTE | 2019-03-17 12:23 | NUR ---
Family reports pt ate about 75% of sandwich, more meat than bread, then pt wanted to bedrest, enc to toilet first, was incont of urine in pull ups, max assist to change. Pt had two loss of balance when turning with walker, corrected with gait belt, cued to doff pants, assisted with bisi cares. Pt to bed with alarm on, call lt in reach.
--- NOTE | 2019-03-17 15:01 | NUR ---
MEKHI contacted the patient's daughter, Elena, and scheduled a family conference for tomorrow, 03/18, at 1345. MEKHI informed IPR Director. MEKHI to continue to follow.
[2019-03-17 16:39] VITALS: BP 157/58; PULSE 66; TEMP 98.1
--- NOTE | 2019-03-17 21:00 | NUR ---
Patient male visitor left for the night. HS meds all reviewed and except for capsules given crushed in pudding. Patient denies pain or needs. BLE elevated on pillows/heels slightly red/yecenia "I was wearing my shoes".
--- NOTE | 2019-03-18 02:33 | NUR ---
Patient has been resting with eyes closed. Respiration with ease.
[2019-03-18 03:26] VITALS: BP 145/57; PULSE 67; TEMP 98.9
--- NOTE | 2019-03-18 05:34 | NUR ---
PATIENT HAS BEEN RESTING WITH EYES CLOSED THROUGH THE NIGHT.
[2019-03-18 16:10] VITALS: BP 128/65; PULSE 60; TEMP 98
--- NOTE | 2019-03-18 16:43 | NUR ---
Patient resting in recliner at this time, call light in reach and chair alarm is on. Patient tolerating meals this shift. Denies pain at this time. Reports having a medium BM this afternoon.
--- NOTE | 2019-03-18 16:45 | NUR ---
MEKHI attended a family meeting with the patient, patient's daughter (Elena), and boyfriend (Nolberto). Also present was IPR Director, PT, OT, & ST. Emily IPR Director started by explaining the purpose of the meeting. PT, OT, and ST then discussed how the patient is doing. Emily then discussed the tentative plan for a discharge next Saturday, 03/25, with either SNF vs 15/04 care. The patient and patient's family would like to see how the patient does the rest of the week and then come to a conclusion on Saturday. The patient's daughter was interested in agencies that could provide private duty services for companions, when family is not present with the patient at home. The team answered all patient and family questions. MEKHI then met with the patient and reviewed the IPR Team Conference Note. The patient is in agreeance to the plan. MEKHI also provided the patient with a list of agencies that provide private duty services. MEKHI to continue to follow.
--- NOTE | 2019-03-18 19:28 | NUR ---
Patient attended all therapies today. Her daughter and grandson stopped by to visit this afternoon and significant other visited this evening. She has been tolerating her diet, but Nolberto was able to get her to eat more this evening. She was CGA with walking with walker to the toilet this shift. Required staff to assist with changing her wet brief and change her pants. Dressing to coccyx is dry and intact this shift. It took over a half hour to give her morning pills due to her difficulty with swallowing. Speech Therapy worked with this nurse with pill administration this morning. Denied pain this shift.
--- NOTE | 2019-03-18 21:00 | NUR ---
Patient awakened for meds given crushed in pudding. Denies pain or needs. Doesn't turn "only sleep on my back" and encouraged off loading. Snack of strawberry milkshake given.
--- NOTE | 2019-03-19 00:36 | NUR ---
Patient awakened for meds given in pudding.
--- NOTE | 2019-03-19 05:00 | NUR ---
Patient needed assist with torso to sit up on side of bed but was able to rest self back in bed. Mod assist to bsc and total assist with pants down and up and to wipe. Incontinent urine in brief and nurse changes.
[2019-03-19 05:35] VITALS: BP 153/60; PULSE 66; TEMP 97.9
--- NOTE | 2019-03-19 12:36 | NUR ---
Conchita reports pt ate half of a large pot pie from [facility].
--- NOTE | 2019-03-19 13:47 | NUR ---
The patient's daughter (Elena) and boyfriend (Nolberto) requested to speak to MEKHI. MEKHI then met with the patient's daughter and boyfriend. The patient's daughter and boyfriend report that they have decided to pursue SNF upon discharge. The patient had informed her boyfriend that she and him cannot handle everything on their own at home. The patient's boyfriend reports that he has been in contact with [facility] and that they would all prefer [facility] for a skilled stay. MEKHI presented and explained the patient choice form to the patient's daughter and boyfriend. [facility] The patient's daughter signed and she was provided a copy. MEKHI to fax a referral to [facility] and will continue to follow.
[2019-03-19 15:56] VITALS: BP 147/57; PULSE 63; TEMP 98.8
--- NOTE | 2019-03-19 20:43 | NUR ---
No acute changes. Pt had family visiting today. Report to ROGE Rojas.
--- NOTE | 2019-03-19 21:50 | NUR ---
PT RESTING IN BED. DROWSY. TAKE HS MEDICATIONS WITH PUDDING. HOB ELEVATED. INCONT URINE/STOOL IN PULL UPS. AQUACELL INTACT TO COCCYX. REPOSTIONED. CALL LIGHT IN REACH. ED ALARM SET.
[2019-03-20 05:47] VITALS: BP 158/62; PULSE 67; TEMP 98
--- NOTE | 2019-03-20 05:48 | NUR ---
PT SITTING ON EDGE OF BED. CONFUSED. ASSISTED TO BR WITH WALKER. UNSTEADY GAIT. PT INCONTINENT OF STOOL/URINE IN DIAPER. PT CLEANED UP. AQUACELL FELL OFF ON COCYX. AREA HEALING AND IMPROVING. WILL REPLACE ON DAYSHIFT. BACK TO BED. CALL LIGHTIN REACH. BED ALARM SET.
--- NOTE | 2019-03-20 11:21 | NUR ---
Patient working with therapy at this time. Patient had an incontinent stool this morning and was not awear that she had even gone. She was a one person CGA with gait belt and 4 wheeled walker to bathroom. Patient did wipe herself, but staff assisted her with getting stool from inside her legs from the incontinent stool episode. Patient did take three small pills with water and had no problem getting them down. The others she could not get down whole with applesauce or pudding. This nurse crushed the rest of them for her and she tolerated well. She denies pain or questions at this time. Her phone was going on her so this nurse found a customer orders clerk for her to use this morning.
--- NOTE | 2019-03-20 14:23 | NUR ---
SW contacted and faxed a referral [facility]. SW awaiting their screen.
--- NOTE | 2019-03-20 15:02 | NUR ---
Amy, at [facility], reports that they can accept the patient. SW to inform the patient and patient's family and will continue to follow.
[2019-03-20 16:24] VITALS: BP 155/58; PULSE 67; TEMP 98.3
--- NOTE | 2019-03-20 19:09 | NUR ---
This nurse heard call light going off in patient room. By the time staff arrived patient had transferred herself from her recliner to her bed and she was laying half on the bed face down with feet on the floor. Two staff assisted her the rest of the way into her bed. Patient was upset because she said she was told by Nolberto that he would be picking her up to go home. Patient was confused about this. Patient did say that she was in the hospital, but that Nolberto had left crying and she was worried about him. This nurse called Nolberto from patient phone and left a message for him to return her call. Awaiting a return call from Nolberto. Will continue to monitor. Patient is currently resting in bed, alarm is on and slip proof socks on.
--- NOTE | 2019-03-20 19:45 | NUR ---
DAUGHTER FATOUMATA HERE. VERY SUPPORTIVE. PT CALMER NOW. TOOK SCHEDULED SEROQUIL WITH PHONG. ILYA GUAN SPOKE WITH PT'S SIGNIFICANT OTHER. HE IS AT HOME AND SAFE. RELAYED THIS TO PT.
--- NOTE | 2019-03-20 21:00 | NUR ---
PT RESTING NOW. NO DESTRESS. DAUGHTER LEAVING NOW FOR THE NIGHT.
--- NOTE | 2019-03-21 00:21 | NUR ---
PT ABLE TO TAKE CLEOCIN WITH PUDDING BUT WITH SOME DIFFICULTY. CHANGED INCONT PULL UP WITH URINE. PT RETURNS TO SLEEP. NO DISTRESS. CALL LIGHT IN REACH. BED ALARM SET.
--- NOTE | 2019-03-21 02:33 | NUR ---
PT CONTINUES RESTING. NO DISTRESS. REPOSITIONED SEVERAL TIMES OFF COCCYX.
[2019-03-21 05:57] VITALS: BP 169/63; PULSE 71; TEMP 97.8
--- NOTE | 2019-03-21 06:31 | NUR ---
PT SLEPT WELL THROUGH THE NIGHT. NO ATTEMPTS TO GET OUT OF BED IMPULSIVELY. ORIENTED THIS AM. INCONT URINE IN DIAPER. PT COOPERATIVE. DENIES PAIN AT THIS TIME. CALL LIGHT IN REACH. [facility] ALARM SET.
--- NOTE | 2019-03-21 12:02 | NUR ---
Patient is currently resting in recliner at this time with Nolberto by her side. Patient did sleep through the night per warehouse worker 2nd shift nurse following her dose of seroquel. Patient is not showing any signs of confusion this morning. Daughter just arrived to visit patient as well. This nurse used some adhesive remover to get off sticky tape from prior EKG's on patient chest this morning. PICC lines flushed with no difficulty. Patient was a CGA with transfer to the bathroom this morning. Denies pain at this time. Will continue to monitor.
[2019-03-21 17:15] VITALS: BP 149/71; PULSE 60; TEMP 98.2
--- NOTE | 2019-03-21 21:05 | NUR ---
Patient tolerated meals wells today. She had no episodes of confusion. She had a nice visit with her boyfriend, Nolberto today. Patient reported some left rib pain following therapies today and was given prn tylenol and encouraged to use the I.S. Patient was able to show that she was able to use the Incentive Spirometer appropriatly. Will continue to monitor.
--- NOTE | 2019-03-21 21:30 | NUR ---
PT CALM AND COOPERATIVE. RESTING IN BED. PT CONFUSED AT THIS TIME. SHE WAS SPEAKING ABOUT A NUMBER TWO IN THE TRUNK OF HER CAR SHE DIDNT KNOW WHAT TO DO. REASSURED PT EVERYTHING WAS FINE. REPOSITIONED. DIAPER WET. CHANGED.
--- NOTE | 2019-03-22 03:25 | NUR ---
PT RESTING. NO RESP DISTRESS.
[2019-03-22 05:51] VITALS: BP 171/66; PULSE 68; TEMP 98.1
--- NOTE | 2019-03-22 11:32 | NUR ---
0800INTRODUCED MYSELF TO PT. PT DENIES PAIN AT PRESENT. FRIEND HERE TO VISIT. PT LAYING IN BED. PT WAS ASSISTED TO BR AND VOIDED CLEAR YELLOW URINE. PT WAS ABLE TO AMBULATE INTO BATHROOM WITH GAIT BELT AND WALKER. PT HAD TO BE INSTRUCTED TO STAY WITHIN HER WALKER TO KEEP SAFE. PT UNDRESSED AND HAD MODERATE ASSIST WITH REMOVING PANTS. SHE COULD NOT GET THE PANTS OFF HER FEET. NURSE HELPED. PT WAS ABLE TO UNBOTTON AND REMOVE SHIRT. NURSE HAD TO PUT UNDERWARE AND PANTS OVER HER FEET. THEN PT WAS ABLE TO PULL THEM UP. WHILE STANDING PT WAS UNSTEADY AND ROCKED TOWARD THE WALL. MOSTLY CGA BACK TO CHAIR. ALARMS ON AND CALL LIGHT IN REACH. 1030DAUGHTER ARRIVES AND FRIEND LEAVES
--- NOTE | 2019-03-22 12:56 | NUR ---
PT LAYING DOWN FOR A NAP. FAMILY LEFT
[2019-03-22 16:25] VITALS: BP 135/51; PULSE 59; TEMP 98.3
[2019-03-23 04:27] VITALS: BP 157/70; PULSE 65; TEMP 98.1
--- NOTE | 2019-03-23 05:56 | NUR ---
PT ALITTLE CONFUSED THIS AM. EASY TO REORIENT. ASSISTED TO BR. HAD BM AND VOID INCONT BY THE TIME ASSISTRED TO BR. CHANGED PANTS WITH MAX ASSIST. NOTICED RED GENERALIZED RASH ON TORSO AND AND THIGHS. PT RELATES ITCHY. RETURNED TO BED. CALL LIGHT IN REACH. BED ALARM SET.
--- NOTE | 2019-03-23 10:45 | NUR ---
Changed coccyx dressing: no drainage, all blanchable, nathan buttocks intact, center of tailbone has old peeling skin attached and granulated pink skin underneath, applied barrier cream to tailbone and piece of aquacel ag gauze then mepilex foam dressing with mastitol.
--- NOTE | 2019-03-23 14:05 | NUR ---
Reported to Dr. Souza that pt has generalized, flat blotchy rash to back, belly, and arms, also, Nolberto reported pt c/o chest pain under left breast only with coughing. Family brought personal smith pizza and pie for lunch. Pt bedrested after lunch, air mattress in place.
[2019-03-23 16:32] VITALS: BP 166/59; PULSE 64; TEMP 97.6
--- NOTE | 2019-03-23 16:45 | NUR ---
Pt declined benadryl at this time, states that the itching is somewhat improved.
--- NOTE | 2019-03-23 20:00 | NUR ---
HS meds all reviewed and given crushed in pudding/capsules given whole in pudding. Patient then returns to resting with eyes closed. POWER REACTOR OPERATOR assisted patient for HS earlier.
--- NOTE | 2019-03-24 02:30 | NUR ---
Patient has been resting with eyes closed. Respirations with ease.
[2019-03-24 04:00] VITALS: BP 151/55; PULSE 67; TEMP 98.2
--- NOTE | 2019-03-24 09:41 | NUR ---
SW faxed update to [facility]. MEKHI will continue to follow.
--- NOTE | 2019-03-24 12:19 | NUR ---
Daughter brought food for pt- ate 1/2 roast beef sandwich, cantaloupe, chips. Pt denies pain.
--- NOTE | 2019-03-24 12:30 | NUR ---
PICC intact right upper arm. With sterile technique right upper arm PICC dressing change done with insertion site cleansed with ChloraPrep 1, chlorhexidine impregnated disc applied, skin prep, StatLock, and Tegaderm applied. No signs or symptoms of IV complications noted. No concerns voiced. Arm wrapped with Benny to protect catheter.
[2019-03-24 15:56] VITALS: BP 131/50; PULSE 63; TEMP 98.3
--- NOTE | 2019-03-24 17:13 | NUR ---
Pt bedrested this afternoon. Family visiting and pt to chair with alarm on at this time, call lt in reach.
--- NOTE | 2019-03-24 20:30 | NUR ---
HS meds all reviewed and given crushed in pudding. Patient visits with male visitor. Denies pain.
--- NOTE | 2019-03-24 20:45 | NUR ---
Patient ambulates slowly to the bathroom and manages all toileting tasks slowly. Rests self back in bed. BLE elevated on pillow. Male visitor leaving for the night.
--- NOTE | 2019-03-25 01:30 | NUR ---
Patient has been resting with eyes closed. Respirations with ease.
--- NOTE | 2019-03-25 03:10 | NUR ---
Patient has been resting in bed with eyes closed. Respirations with ease.
[2019-03-25 05:02] VITALS: BP 147/63; PULSE 68; TEMP 98.8
--- NOTE | 2019-03-25 05:31 | NUR ---
Awakened for am med and is continent. Denies need for toileting. Returns to resting with eyes closed.
[2019-03-25] MEDS ORDERED: AMOXICILLIN 8751 TAB PO (08:43)
[2019-03-25] MEDS ORDERED: SEROQUEL 2525 MG/TAB PO (08:44)
[2019-03-25] MEDS ORDERED: TYLENOL 325MG325 MG PO (08:44)
[2019-03-25] MEDS ORDERED: DULCOLAX S10 MG/SUPP RC (08:45)
[2019-03-25] MEDS ORDERED: NAMENDA 10MG TA10 MG PO (08:45)
[2019-03-25] MEDS ORDERED: COLACE 100100 MG/CAP PO (08:45)
[2019-03-25] MEDS ORDERED: TRIAMCINOLONE A15 GM TP (08:46)
[2019-03-25] MEDS ORDERED: Patient's Own Medica TOP (08:46)
--- NOTE | 2019-03-25 09:21 | NUR ---
MEKHI faxed update to Amy at [facility]. MEKHI will continue to follow.
--- NOTE | 2019-03-25 09:42 | NUR ---
The patient is to discharge today, 03/[facility] shelter stay. The patient will be transported at 1130. MEKHI presented the IM form to the patient. The pt understood and signed the form. The pt received a copy and the original was placed in the chart. MEKHI faxed discharge orders to [facility]. There are no additional needs at this time.
--- NOTE | 2019-03-25 10:00 | NUR ---
Patient ate 50% of her breakfast this morning. She was a one assist with transferring to the toilet. She was able to pull her brief and pants up and down on her own and wipe herself. Patient took her pills crushed this morning with pudding. Patient in pleasent mood awaiting for her ride to SNF.
--- NOTE | 2019-03-25 11:30 | NUR ---
Patient health summary, Discharge summary, and Home meds printed and sent with patient to [facility]. Belongings gathered by ARIE/Daiana including, phone, shoes, clothing, chair cushion and bed air mattress and air pump. Pt was taken by wheelchair via [facility] Transportation services and secured in their vehicle for transportation to [facility]. Patient and family denied any questions.
== END 2019-03-25 12:00 | DRG 947 ==
PROVIDERS: ADMIT Internal Medicine
DX: R53.81 Other malaise (principal); J13 Pneumonia due to Streptococcus pneumoniae; J96.01 Acute respiratory failure with hypoxia; E43 Unspecified severe protein-calorie malnutrition; F05 Delirium due to known physiological condition; I50.20 Unspecified systolic (congestive) heart failure; E87.0 Hyperosmolality and hypernatremia; E46 Unspecified protein-calorie malnutrition; I48.91 Unspecified atrial fibrillation; I11.0 Hypertensive heart disease with heart failure; E78.5 Hyperlipidemia, unspecified; E83.42 Hypomagnesemia; G40.909 Epilepsy, unspecified, not intractable, without status epilepticus; L27.0 Generalized skin eruption due to drugs and medicaments taken internally; D64.9 Anemia, unspecified; E87.6 Hypokalemia; E03.9 Hypothyroidism, unspecified; M06.9 Rheumatoid arthritis, unspecified; E87.8 Other disorders of electrolyte and fluid balance, not elsewhere classified; F03.90 Unspecified dementia, unspecified severity, without behavioral disturbance, psychotic disturbance, mood disturbance, and anxiety; J45.909 Unspecified asthma, uncomplicated; G72.9 Myopathy, unspecified; Z79.83 Long term (current) use of bisphosphonates; Z79.01 Long term (current) use of anticoagulants; Z90.710 Acquired absence of both cervix and uterus; Z88.1 Allergy status to other antibiotic agents
CPT/HCPCS: 99222-AI; 99232-AI; 99233-AI; 99239; A9284

== ENCOUNTER → 2019-03-30 | Outpatient (REF) ==
[~2019-03-30] MED LIST changes: +AMOXICILLIN 8751 TAB PO; +COLACE 100100 MG/CAP PO; +DULCOLAX S10 MG/SUPP RC; +NAMENDA 10MG TA10 MG PO; +Patient's Own Medica TOP; +SEROQUEL 2525 MG/TAB PO; +TRIAMCINOLONE A15 GM TP; +TYLENOL 325MG325 MG PO
[2019-03-30 06:46] LABS: BASO % 0.4 % (0.0-2.0); EOS # 0.1 (0.0-0.7); EOS % 1.5 % (0-4.0); GRAN # 4.8 (1.4-6.5); GRAN % 71.2 % (42.2-75.2); LYMPH # 1.1 (1.2-3.4); LYMPH % 16.6 % (20.0-51.0); MEAN CELL VOLUME 85 fl (80.0-100.0); MEAN CORPUSCULAR HGB CONC 31 g/dl (33.0-37.0); MEAN PLATELET VOLUME 11.2 fl (7.4-10.4); MONO # 0.6 (0.1-0.6); MONO % 9.4 % (1.7-9.3); PLATELET COUNT 218 K/mm3 (130-400); RED BLOOD COUNT 3.35 M/mm3 (4.10-5.30); REDCELL DISTRIBUTION WIDTH-CV 15.3 % (11.5-14.5)
[2019-03-30 06:49] LABS: HEMATOCRIT 28.5 % (37.0-47.0); HEMOGLOBIN 8.9 g/dl (12.5-16.0); MEAN CORPUSCULAR HEMOGLOBIN 27 pg (27.0-31.0)
[2019-03-30 07:06] LABS: CALCIUM 8.1 mg/dL (8.4-10.2); CREATININE, serum 0.63 (0.52-1.25); POTASSIUM 3.3 mmol/L (3.4-5.0)
== END ==
LOC: ZCOL.LAB 06:32
PROVIDERS: Family Medicine
DX: E43 Unspecified severe protein-calorie malnutrition (principal); I11.0 Hypertensive heart disease with heart failure; I50.9 Heart failure, unspecified; E87.6 Hypokalemia

== ENCOUNTER 2019-04-16 02:52 | Inpatient (IN) | payer MEDICARE, BC ==
[~2019-04-16] VITALS: Ht 162.6 cm; Wt 59.2 kg
[2019-04-16] VITALS (951 sets, daily range): BP systolic 116–157; BP diastolic 70–87; PULSE 77–91; TEMP 98.2–98.8; O2SAT 82–100
[2019-04-16 03:35] LABS: BASO % 0.2 % (0.0-2.0); EOS % 0.2 % (0-4.0); GRAN # 10.1 (1.4-6.5); GRAN % 83.5 % (42.2-75.2); HEMATOCRIT 31.2 % (37.0-47.0); HEMOGLOBIN 9.3 g/dl (12.5-16.0); LYMPH % 8.1 % (20.0-51.0); MEAN CELL VOLUME 85 fl (80.0-100.0); MEAN CORPUSCULAR HEMOGLOBIN 25 pg (27.0-31.0); MEAN CORPUSCULAR HGB CONC 30 g/dl (33.0-37.0); MONO # 0.8 (0.1-0.6); MONO % 6.8 % (1.7-9.3); PLATELET COUNT 367 K/mm3 (130-400); RED BLOOD COUNT 3.67 M/mm3 (4.10-5.30); REDCELL DISTRIBUTION WIDTH-CV 16.2 % (11.5-14.5)
[2019-04-16 03:37] LABS: INR 1.5 (0.8-3.0); PROTHROMBIN TIME 18.2 SECONDS (9.7-12.8)
[2019-04-16 03:39] LABS: PARTIAL THROMBOPLASTIN TIME 31.5 SECONDS (26.0-37.0)
[2019-04-16 03:41] LABS: ALBUMIN 3.2 gm/dL (3.5-5.0); BILIRUBIN,TOTAL 0.5 mg/dL (0.0-1.0); CALCIUM 9.8 mg/dL (8.4-10.2); CREATININE, serum 0.7 (0.52-1.25); POTASSIUM 4.1 mmol/L (3.4-5.0); TOTAL PROTEIN 6.6 gm/dL (6.4-8.2)
[2019-04-16 04:00] LABS: TROPONIN-I 0.037 ng/mL (0.000-0.035)
[2019-04-16 04:29] LABS: COLLECTION METHOD CATHETER
[2019-04-16 04:35] LABS: MUCOUS Present /lpf; PH 6 (5-8); SQUAMOUS EPITHELIAL None Seen /hpf; URINE APPEARANCE Hazy; URINE BACTERIA Rare /hpf; URINE BILIRUBIN Negative (NEGATIVE); URINE BLOOD Negative (NEGATIVE); URINE CALCIUM OXALATE CRYSTAL Present /hpf; URINE COLOR Yellow; URINE GLUCOSE Negative (NEGATIVE); URINE KETONE Trace (NEGATIVE); URINE LEUKOCYTE ESTERASE Negative (NEGATIVE); URINE NITRATE Negative (NEGATIVE); URINE PROTEIN(semi-quant) Negative (NEGATIVE); URINE UROBILINOGEN Negative (NEGATIVE)
--- NOTE | 2019-04-16 05:20 | NUR ---
Report received from Sofia GUAN in ED.
--- NOTE | 2019-04-16 05:40 | NUR ---
Pt arrived via stretcher X1 staff assist from ED to ICU02. Pt spouse in ICU waiting room. Pt transfered from stretcher to ICU bed X3 staff assist. Pt arrived with RT on Bipap. Denies any current SOA or pain. Street shirt on with brief. Noted coccyx wound noted in assessment. Assessment completed at this time.
[2019-04-16] MEDS ORDERED: MELATONIN5 M1 PO (06:22)
[2019-04-16] MEDS ORDERED: MIRTAZAPINE7.5 MG PO (06:24)
[2019-04-16] MEDS ORDERED: K-DUR20 MEQ PO (06:47)
[2019-04-16] MEDS ORDERED: TYLENOL SU120 MG/SUP RC (06:51)
--- NOTE | 2019-04-16 07:05 | NUR ---
Report provided to Teri Stone RN.
[2019-04-16] MEDS ORDERED: COLACE 100100 MG/CAP PO (07:26)
[2019-04-16] MEDS ORDERED: IMODIUM 2MG CAPS2 MG PO (07:27)
[2019-04-16] MEDS ORDERED: METROGEL1% TOP (07:28)
[2019-04-16] MEDS ORDERED: MILK OF MA400 MG/52 PO (07:29)
[2019-04-16] MEDS ORDERED: ALMACONE 360 M360 ML PO (07:29)
[2019-04-16] MEDS ORDERED: TYLENOL 325MG325 MG PO (07:30)
[2019-04-16] MEDS ORDERED: ZILRETTA32 MG TOP (07:30)
[2019-04-16] MEDS ORDERED: VENTOLIN0.09 MG IH (07:31)
--- NOTE | 2019-04-16 07:55 | NUR ---
Dr. Juares rounds at this time.
--- NOTE | 2019-04-16 09:28 | NUR ---
Initial visit (this stay) Patient and her family thanked Script Supervisor for looking in on her and keeping Krystin on Script Supervisor's prayers.
--- NOTE | 2019-04-16 10:03 | NUR ---
Dr. Garcia rounds at this time with social studies teacher and case management. POC discussed to include progression towards palliative care.
--- NOTE | 2019-04-16 10:20 | NUR ---
Attended clinical rounds in which discussion of palliative care was the focus. Pt and family in attendance. Significant other and daughter present and involved. Goals of care discussed per Dr Garcia. Pt verbalized that she is still interested in aggressive management of condition at this time. She did verbalize that she would like to think about this further but at this time maintains that she would like to continue to "fight". Comfort care approach explained in detail to pt and family and understanding expressed. All deny further questions. At this time, myself and Georgia GAMING opted not to meet further to discuss additional goals of care in length as pt and family had verbalized the desire to discuss amongst each other and think about their decision. Wishes honored and pt care will remain aggressive at this time.
--- NOTE | 2019-04-16 10:44 | NUR ---
SW attended clinical rounding and met with patient and family after to discuss goals of care and discharge planning. Patient was at [facility] for SN prior to this intake. They are planning on removing her stuff and not paying the room hold fee. Patients PCP is Dr Olson and she obtains her medications from [facility]. Patient has a DPOA on EMR that lists Nolberto and Elena. talked with patient about goals of care. Patient wanted time to think about it. SW talked with her and family after to explain options. After thinking about it patient would like agressive treatment for now. SW will continue to follow and provide support for family and patient.
--- NOTE | 2019-04-16 13:52 | NUR ---
SW faxed update to [facility].
--- NOTE | 2019-04-16 17:24 | NUR ---
Dr. Juares rounds again at this time and discusses POC at length with patient and daughter. Care ongoing.
--- NOTE | 2019-04-16 19:30 | NUR ---
Bedside report received from ROGE Williamson.
--- NOTE | 2019-04-16 20:00 | NUR ---
Patient awake at this time resting in bed and is slightly dowsy. Patient's SO and family are at bedside. Assessment complete. Lungs have expiratory wheezes in the upper lobes bilaterally with diminished bases. HR and rhythm are regular with an audible murmur, first heart sound heard. Bowel sounds are active. Patient has +2 pitting edema to the lower extremities and feet. Patient is partially oriented, some questions are answered incorrectly and patient gets confused. She is following commands. When repositioning the patient, there was blood found underneath her. Blood is found to be coming from the vagina, when asked the patient states that she has been having this problem "since I started that medication". Patient is unable to report what medication or if she is on any new medications. Patient cleaned with cleansing wipes. Repositioned for comfort. Patient has no complaints of pain or shortness of breath. Will continue to monitor. Call light within reach.
--- NOTE | 2019-04-16 21:10 | NUR ---
Patient given medication crushed into vanilla pudding. Patient tolerated well, no choking or coughing noted. Will continue to monitor.
[2019-04-17] VITALS (642 sets, daily range): BP systolic 114–130; BP diastolic 51–64; PULSE 70–80; TEMP 97.8–98.4; O2SAT 96–100
--- NOTE | 2019-04-17 | NUR ---
Patient asleep on BiPAP at this time. Awakens to name. She is very drowsy, No change in mental status from previous check. Patient has no complaints of pain or SOB. Patient has no further needs at this time. Will continue to monitor. Call light within reach.
--- NOTE | 2019-04-17 04:00 | NUR ---
Patient continues to sleep. Awakens to name. Patient is more lethargic this time and does not want to answer questions. She requests to go back to sleep. Repositioned for comfort. No further needs. Will continue to monitor.
[2019-04-17 05:23] LABS: BASO % 0.3 % (0.0-2.0); GRAN # 7.6 (1.4-6.5); GRAN % 80.9 % (42.2-75.2); LYMPH # 0.7 (1.2-3.4); LYMPH % 7.5 % (20.0-51.0); MEAN CELL VOLUME 85 fl (80.0-100.0); MEAN CORPUSCULAR HGB CONC 30 g/dl (33.0-37.0); MEAN PLATELET VOLUME 10.3 fl (7.4-10.4); MONO % 10.3 % (1.7-9.3); PLATELET COUNT 306 K/mm3 (130-400); RED BLOOD COUNT 2.83 M/mm3 (4.10-5.30); REDCELL DISTRIBUTION WIDTH-CV 16.6 % (11.5-14.5)
[2019-04-17 05:26] LABS: HEMOGLOBIN 7.3 g/dl (12.5-16.0); MEAN CORPUSCULAR HEMOGLOBIN 26 pg (27.0-31.0)
[2019-04-17 05:31] LABS: CALCIUM 8.4 mg/dL (8.4-10.2); CREATININE, serum 0.9 (0.52-1.25); POTASSIUM 4.1 mmol/L (3.4-5.0)
--- NOTE | 2019-04-17 07:00 | NUR ---
RECEIVED REPORT FROM ROGE FRANCO. CARE TAKEN OVER AT THIS TIME.
--- NOTE | 2019-04-17 07:15 | NUR ---
Bedside report given to ROGE Houser. Dr. Juares at the bedside speaking with patient. transfer of care.
[2019-04-17 08:36] LABS: HEMATOCRIT 24.5 % (37.0-47.0); HEMOGLOBIN 7.5 g/dl (12.5-16.0)
[2019-04-17 08:39] LABS: IRON,SERUM 49 ug/dL (35-150)
[2019-04-17 08:48] LABS: TOTAL IRON BINDING CAPACITY 242 ug/dL (265-497)
[2019-04-17 09:16] LABS: FERRITIN 284 ng/mL (11-264)
--- NOTE | 2019-04-17 10:44 | NUR ---
Follow-up visit; Patient thanked Tooling Inspector for looking in on her and offering prayer and God's blessings.
--- NOTE | 2019-04-17 10:49 | NUR ---
SW attended clinical rounding. Patient is doing well today and transfering to the medical floor. SW requested PT/OT to assist in DC planning.
--- NOTE | 2019-04-17 12:40 | NUR ---
REPORT CALLED TO ROGE LANE.
--- NOTE | 2019-04-17 14:14 | NUR ---
Pt up to room 309 escorted by ROGE Houser. Oriented patient to room. pt requesting to eat. this nurse will return to assess.
--- NOTE | 2019-04-17 19:52 | NUR ---
Pt assessment completed. Pt rested after eating lunch. Lung sounds clear, heart RRR, bowel sounds present X4. Pt on 4L NC. Gallego in place draining pale yellow urine, clamped to leg, no kinks. Pt is alert and partially oriented to place and self. Pulses strong bilaterally. Pt denies dizziness, chest pain, N/V. Pt c/o MELENDREZ. Pt has LAC IV. Pt received Zosyn upon arrival to floor. Vanc administered. LAC IV has been redressed a couple of times. Spoke with ROGE Newell table games shift manager taking over about possibly finding new site. Pt continues to bend arm and IV may easily come out. Pt has Stage 2 ulcer to coccyx, this nurse placed new dressing. No other skin issues. TOlerating soft diet. No other needs at this time. Call light within reach.
[2019-04-18] VITALS (7 sets, daily range): BP systolic 121–142; BP diastolic 46–58; PULSE 69–82; TEMP 97.6–99.1
--- NOTE | 2019-04-18 01:35 | NUR ---
Pt resting in bed, denies pain or discomfort VSS at this time. Lungs clear to dim in bases, able to take meds with applesause. Pt A/O x 1. Julián remains in place. IV replaced. Will continue to monitor and update providers as needed.
--- NOTE | 2019-04-18 08:30 | NUR ---
PATIENT ASSESSMENT COMPLETED. SHE DENIES ANY NEEDS AT THIS TIME. PILLS TAKEN WITHOUT DIFFICULTY. SIGNIFICANT OTHER AT BEDSIDE. REPOSITIONED TO THE RIGHT SIDE.
--- NOTE | 2019-04-18 11:00 | NUR ---
PATIENT SLEEPING IN BED.
[2019-04-18 12:08] LABS: BASO % 0.4 % (0.0-2.0); EOS # 0.1 (0.0-0.7); EOS % 0.7 % (0-4.0); GRAN # 6.9 (1.4-6.5); GRAN % 81.9 % (42.2-75.2); LYMPH # 0.6 (1.2-3.4); LYMPH % 7.6 % (20.0-51.0); MEAN CELL VOLUME 85 fl (80.0-100.0); MEAN CORPUSCULAR HGB CONC 31 g/dl (33.0-37.0); MEAN PLATELET VOLUME 10.7 fl (7.4-10.4); MONO # 0.7 (0.1-0.6); MONO % 8.3 % (1.7-9.3); PLATELET COUNT 268 K/mm3 (130-400); RED BLOOD COUNT 2.93 M/mm3 (4.10-5.30); REDCELL DISTRIBUTION WIDTH-CV 16.8 % (11.5-14.5)
[2019-04-18 12:11] LABS: HEMATOCRIT 24.9 % (37.0-47.0); HEMOGLOBIN 7.6 g/dl (12.5-16.0); MEAN CORPUSCULAR HEMOGLOBIN 26 pg (27.0-31.0)
[2019-04-18 12:16] LABS: CALCIUM 7.5 mg/dL (8.4-10.2); CREATININE, serum 0.74 (0.52-1.25); POTASSIUM 3.5 mmol/L (3.4-5.0)
--- NOTE | 2019-04-18 14:13 | NUR ---
SW update, patient does not want to go back to [facility]. PA placing IPR consult. Patient decision. Awaiting screen result.
--- NOTE | 2019-04-18 16:30 | NUR ---
MIGUEL DCD WITHOUT DIFFICULTY. PERICARE PROVIDED. NO OTHER NEEDS. SHE WILL CALL TO GO TO THE RESTROOM
--- NOTE | 2019-04-18 19:00 | NUR ---
Report received from Sakina GUAN. Pt resting in bed. No distress noted. Pt denies needs at this time.
--- NOTE | 2019-04-18 20:30 | NUR ---
Pt resting in bed. Family at bedside but leaving for the night. Pt denies pain at this time. Respirations even and unlabored. Lungs clear, bases are diminished. O2 @ 2.5L via NC. Spo2 is 93%. Respiratory Therapy just completed HS breathing treatment. Abdomen soft, nontender. BS+. Stage II pressure ulcer on coccyx not visualized- covered with Mepilex dressing- clean, dry and intact. Pt is A&O at this time. R AC and R FA INTs intact. Pt took HS medication without difficulty. No needs noted. Will continue to monitor.
[2019-04-19 03:27] VITALS: BP 138/56; PULSE 73; TEMP 99.2
--- NOTE | 2019-04-19 06:45 | NUR ---
Report given to Sakina GUAN. Pt has rested throughout the night without distress. O2@2L via NC. IV Abx infusing to R arm IV sites x2. Pt denies needs.
[2019-04-19 07:08] LABS: BASO % 0.6 % (0.0-2.0); EOS # 0.1 (0.0-0.7); EOS % 1.2 % (0-4.0); GRAN # 5.2 (1.4-6.5); GRAN % 78.3 % (42.2-75.2); LYMPH # 0.7 (1.2-3.4); LYMPH % 10.2 % (20.0-51.0); MEAN CELL VOLUME 85 fl (80.0-100.0); MEAN CORPUSCULAR HGB CONC 30 g/dl (33.0-37.0); MEAN PLATELET VOLUME 10.4 fl (7.4-10.4); MONO # 0.6 (0.1-0.6); MONO % 8.6 % (1.7-9.3); PLATELET COUNT 244 K/mm3 (130-400); RED BLOOD COUNT 3.01 M/mm3 (4.10-5.30); REDCELL DISTRIBUTION WIDTH-CV 17.2 % (11.5-14.5)
[2019-04-19 07:15] LABS: HEMATOCRIT 25.7 % (37.0-47.0); HEMOGLOBIN 7.7 g/dl (12.5-16.0); MEAN CORPUSCULAR HEMOGLOBIN 26 pg (27.0-31.0)
[2019-04-19 07:21] LABS: CALCIUM 7.7 mg/dL (8.4-10.2); CREATININE, serum 0.75 (0.52-1.25); MAGNESIUM 1.8 mg/dL (1.6-2.3); POTASSIUM 3.2 mmol/L (3.4-5.0)
[2019-04-19 07:40] VITALS: BP 144/59; PULSE 77; TEMP 98
--- NOTE | 2019-04-19 08:19 | NUR ---
PATIENT ASSESSMENT COMPLETED. SHE IS REPOSITIONED IN BED. SIGNIFICANT OTHER AT BEDSIDE. SHE DENIES PAIN OR OTHER NEEDS AT THIS TIME.
[2019-04-19 11:05] VITALS: BP 154/58; PULSE 77; TEMP 98.6
[2019-04-19 16:34] VITALS: BP 131/51; PULSE 73; TEMP 98.4
--- NOTE | 2019-04-19 19:00 | NUR ---
Report received from Sakina GUAN. Pt denies needs. Will continue to monitor.
--- NOTE | 2019-04-19 19:15 | NUR ---
Pt update given to Dr. Garza. No new orders received.
[2019-04-19 19:26] VITALS: BP 134/60; PULSE 79; TEMP 98.2
--- NOTE | 2019-04-19 19:30 | NUR ---
Pt resting with HOB elevated. Family at bedside. No distress noted. Respirations even and unlabored. Fine crackles auscultated in bilateral lungs with diminished bases. O2@2L via NC- spo2 is 97% currently. 1+ edema noted to BLE. Pedal pulses equal- 1+. Pt is A&O. No neurological deficits noted. Pt denies pain at this time. Stage II pressure ulcer to coccyx- no visualized- covered with Mepilex dressing. R AC and R FA INT sites with IV Abx infusing. Pt denies current needs. Will continue to monitor.
--- NOTE | 2019-04-19 19:40 | NUR ---
Pt turned on L side per pt request. No other needs noted.
--- NOTE | 2019-04-19 20:43 | NUR ---
Pt sleeping. Pt was difficult to arouse, but is alert and oriented once awake. HS meds given. Sleeping medication held due to patient condition. Pt has some difficulty swallowing. Will continue to monitor.
[2019-04-19 23:54] VITALS: BP 138/59; PULSE 75; TEMP 97.5
--- NOTE | 2019-04-20 02:40 | NUR ---
Received a call from patient's daughter, Conchita at 0220. Daughter had received a phone call from the patient and the daughter was concerned that the pt sounded confused. Nurse had checked on the patient 5 minutes prior to the phone call and the patient was sleeping. Upon entering the pts room, pt was attempting to get out of bed. She stated she was confused about her cell phone and where she was. Pt easily reoriented. Pts Spo2 was 89% on O2@2L when first entering the room. Pt was also incontient of stool and urine. Pt was cleaned and repositioned. Spo2 increased to 93%. Daughter provided with pt update. Will continue to monitor.
--- NOTE | 2019-04-20 04:00 | NUR ---
Neuro check completed. Pt is alert, but confused about where she is. Able to answer other orientation questions. No other neurological deficits noted. Pt denies pain.
--- NOTE | 2019-04-20 04:30 | NUR ---
Pt alert and oriented x4. States she was incontinent while sleeping. Brief changed and pt cleaned.
[2019-04-20 04:45] VITALS: BP 125/79; PULSE 101; TEMP 97.9
[2019-04-20 06:18] LABS: INR 1.1 (0.8-3.0); PROTHROMBIN TIME 13.3 SECONDS (9.7-12.8)
[2019-04-20 06:26] LABS: CALCIUM 8.5 mg/dL (8.4-10.2); CREATININE, serum 0.9 (0.52-1.25); MAGNESIUM 1.9 mg/dL (1.6-2.3); POTASSIUM 3.4 mmol/L (3.4-5.0)
--- NOTE | 2019-04-20 06:33 | NUR ---
Pt sleeping this AM but easily arousable. Denies pain. Pt slept throughout the night. Up to the bathroom multiple times with stand by assist. VSS.
--- NOTE | 2019-04-20 06:35 | NUR ---
Pt sleeping this AM. Easily arousable. Alert and oriented when awoken. Pt denies pain. O2@2L via NC.
--- NOTE | 2019-04-20 07:23 | NUR ---
Report given to Lalo GUAN. Pt resting. Family at bedside.
[2019-04-20 07:30] VITALS: BP 149/65; PULSE 76; TEMP 97.4
--- NOTE | 2019-04-20 08:30 | NUR ---
Assessment completed, alert/oriented, vital signs stable, denies pain, reports respiratory status about the same, lungs CTA/ no resp.difficulty at rest, on 2L o2 NC, she is scheduled for left sided thoracentesis today, consent signed, in the room, she has been NPO, IPR screen taking place today
--- NOTE | 2019-04-20 10:45 | NUR ---
Patient arrived back from ultrasound guided thoracentesis at this time, she is alert/oriented, vital signs stable, will continue to monitor
[2019-04-20 11:16] LABS: GLUCOSE,PLEURAL FLUID 95 mg/dL; TOTAL PROTEIN,PLEURAL FLUID 2.3 gm/dL
[2019-04-20 11:23] VITALS: BP 137/58; PULSE 74; TEMP 97.8
[2019-04-20 11:28] LABS: PLEURAL FLUID RBC 2000 /mm3 (0-0); PLEURAL FLUID WBC 346 /mm3
[2019-04-20 11:32] LABS: PLEURAL FLUID APPEARANCE CLEAR; PLEURAL FLUID COLOR YELLOW
--- NOTE | 2019-04-20 13:49 | NUR ---
MEKHI returned call to Harika, Daughter, and left . MEKHI informed Gudelia with [facility] that patient plans on dc home.
[2019-04-20 15:50] VITALS: BP 149/72; PULSE 73; TEMP 99.8
--- NOTE | 2019-04-20 16:03 | NUR ---
ROXANNE spoke [place] She is worried about the patient going home but feels like she is the only one in the family that sees its not safe. She reports the patient has a split level home and worries about her getting in and out. ROXANNE explained that patient has not ran out of skilled days yet and what insurance covers for home health. She wants to talk to her mom and siblings and will call roxanne with any other questions.
[2019-04-20 19:39] VITALS: BP 131/52; PULSE 71; TEMP 99.4
--- NOTE | 2019-04-20 23:19 | NUR ---
PT REFUSED BIPAP. PT IN NO DISTRESS, ON 2L NC.
[2019-04-20 23:33] VITALS: BP 146/62; PULSE 68; TEMP 98
[2019-04-21 03:20] VITALS: BP 148/67; PULSE 65; TEMP 98.7
[2019-04-21 06:13] LABS: BASO # 0.1 (0.0-0.2); BASO % 0.8 % (0.0-2.0); EOS # 0.1 (0.0-0.7); EOS % 1.8 % (0-4.0); GRAN # 4.9 (1.4-6.5); GRAN % 75.1 % (42.2-75.2); LYMPH # 0.9 (1.2-3.4); LYMPH % 12.9 % (20.0-51.0); MEAN CELL VOLUME 87 fl (80.0-100.0); MEAN CORPUSCULAR HGB CONC 29 g/dl (33.0-37.0); MEAN PLATELET VOLUME 11.1 fl (7.4-10.4); MONO # 0.6 (0.1-0.6); MONO % 8.5 % (1.7-9.3); PLATELET COUNT 269 K/mm3 (130-400); REDCELL DISTRIBUTION WIDTH-CV 17.3 % (11.5-14.5)
[2019-04-21 06:25] LABS: HEMATOCRIT 27.7 % (37.0-47.0); HEMOGLOBIN 8.1 g/dl (12.5-16.0); MEAN CORPUSCULAR HEMOGLOBIN 25 pg (27.0-31.0)
[2019-04-21 06:27] LABS: CALCIUM 8.5 mg/dL (8.4-10.2); CREATININE, serum 1.02 (0.52-1.25); POTASSIUM 3.5 mmol/L (3.4-5.0)
[2019-04-21 07:46] VITALS: BP 138/56; PULSE 78; TEMP 98.1
[2019-04-21] MEDS ORDERED: CEFTIN500 MG PO (09:04)
[2019-04-21] MEDS ORDERED: PACERONE400 MG PO (09:09)
--- NOTE | 2019-04-21 10:10 | NUR ---
SW attended clinical rounding and met with patient to discuss their disharge plan today. Patient would still like to return home with family support. They report she will never be left alone. They would also like to use [facility] that they had set up at nd from for Home Health. Patient may need O2 and Sw spoke with them about their options for this. They would like to use [facility] if they need it. SW presented IM and verbally discussed the contents. Patient was agreeable and signed the form. Original placed on the chart and copy provided to patient. SW called Xander at [facility] and informed of dc. will fax clinical information and dc when obtained.
[2019-04-21 10:54] VITALS: BP 128/48; PULSE 72; TEMP 98.3
--- NOTE | 2019-04-21 12:30 | NUR ---
PT WENT DOWN FOR THORCENTESIS AT THIS TIME.
--- NOTE | 2019-04-21 13:20 | NUR ---
PT RETURNED BACK TO ROOM. FROM PROCEDURE.
--- NOTE | 2019-04-21 14:30 | NUR ---
RT NOTIFIED RT THAT PT HAD RETURNED TO ROOM FROM THOROCENTESIS IN ORDER TO DO THE EXERCISE OIXEMETRY.
[2019-04-21] MEDS ORDERED: ELIQUIS 5MG PO (14:50)
[2019-04-21] MEDS ORDERED: MIRTAZAPINE7.5 MG PO (14:52)
[2019-04-21] MEDS ORDERED: NAMENDA 10MG TA10 MG PO (14:52)
[2019-04-21] MEDS ORDERED: LASIX 20MG TABL20 MG PO (14:53)
[2019-04-21] MEDS ORDERED: FLOVENT 220MCG7.9 GM IH (14:53)
[2019-04-21] MEDS ORDERED: MEGACE 40MG40 MG/TAB PO (14:53)
[2019-04-21] MEDS ORDERED: K-DUR20 MEQ PO (14:53)
--- NOTE | 2019-04-21 15:45 | NUR ---
PT DISCHARGE INFORMATION PROVIDED. SIGNATURES OBTAINED. IVS REMOVED. ALL QUESTIONS ANSWERED.
--- NOTE | 2019-04-21 15:45 | NUR ---
Discharge orders faxed. Patient dc home today with family support and HH provided by [facility].
--- NOTE | 2019-04-21 16:00 | NUR ---
PT ESCORTED VIA W/C OUT OF FACILITY BY THIS NURSE AND DIRECTOR OF COMMUNICATIONS. TRANFERED PT INTO CAR WITH 2 ASSIST. NO QUESTIONS VOICED
== END 2019-04-21 16:00 | disposition home health service (06) | DRG 871 ==
LOC: COL.ER 02:52 → ICU 04:50 → MEDICAL 04:50
PROVIDERS: Emergency Medicine; Hospitalist; Internal Medicine Pulmonary Disease; Nurse Practitioner; Nurse Practitioner Family; ADMIT Internal Medicine
PROC: 0W993ZZ Drainage of Right Pleural Cavity, Percutaneous Approach (ICD-10-PCS; principal; 2019-04-16)
PROC: 0W993ZZ Drainage of Right Pleural Cavity, Percutaneous Approach (ICD-10-PCS; 2019-04-21)
DX: A41.9 Sepsis, unspecified organism (principal); J96.21 Acute and chronic respiratory failure with hypoxia; J69.0 Pneumonitis due to inhalation of food and vomit; I50.32 Chronic diastolic (congestive) heart failure; J90 Pleural effusion, not elsewhere classified; E46 Unspecified protein-calorie malnutrition; E78.5 Hyperlipidemia, unspecified; I48.91 Unspecified atrial fibrillation; I11.0 Hypertensive heart disease with heart failure; G40.909 Epilepsy, unspecified, not intractable, without status epilepticus; Z66 Do not resuscitate; D64.9 Anemia, unspecified; L89.152 Pressure ulcer of sacral region, stage 2; I08.3 Combined rheumatic disorders of mitral, aortic and tricuspid valves; I27.20 Pulmonary hypertension, unspecified; N93.9 Abnormal uterine and vaginal bleeding, unspecified; F03.90 Unspecified dementia, unspecified severity, without behavioral disturbance, psychotic disturbance, mood disturbance, and anxiety; E03.9 Hypothyroidism, unspecified; Y95 Nosocomial condition; M06.9 Rheumatoid arthritis, unspecified; J45.909 Unspecified asthma, uncomplicated; Z79.01 Long term (current) use of anticoagulants; Z95.818 Presence of other cardiac implants and grafts; Z90.710 Acquired absence of both cervix and uterus; Z88.1 Allergy status to other antibiotic agents
CPT/HCPCS: 99223-AI; 99232-AI; 99233-AI; 99239; J1940; J1956; J2543; J2930; J3370; J7030; J7050; Q9967

== ENCOUNTER 2019-04-23 06:47 | Emergency (ER) | payer MEDICARE, BC ==
[~2019-04-23] VITALS: Ht 170.2 cm; Wt 68.2 kg
[~2019-04-23 06:47] MED LIST changes: +ALMACONE 360 M360 ML PO; +CEFTIN500 MG PO; +IMODIUM 2MG CAPS2 MG PO; +MELATONIN5 M1 PO; +METROGEL1% TOP; +MILK OF MA400 MG/52 PO; +MIRTAZAPINE7.5 MG PO; +TYLENOL SU120 MG/SUP RC; +VENTOLIN0.09 MG IH; +ZILRETTA32 MG TOP
[2019-04-23 06:48] VITALS: TEMP 98.4
[2019-04-23 07:34] LABS: HEMATOCRIT 32.8 % (37.0-47.0); HEMOGLOBIN 9.7 g/dl (12.5-16.0); MEAN CELL VOLUME 85 fl (80.0-100.0); MEAN CORPUSCULAR HEMOGLOBIN 25 pg (27.0-31.0); MEAN CORPUSCULAR HGB CONC 30 g/dl (33.0-37.0); MEAN PLATELET VOLUME 10.9 fl (7.4-10.4); PLATELET COUNT 291 K/mm3 (130-400); RED BLOOD COUNT 3.84 M/mm3 (4.10-5.30); REDCELL DISTRIBUTION WIDTH-CV 17.3 % (11.5-14.5)
[2019-04-23 07:39] LABS: INR 1.3 (0.8-3.0); PROTHROMBIN TIME 15.8 SECONDS (9.7-12.8)
[2019-04-23 07:42] LABS: PARTIAL THROMBOPLASTIN TIME 30.1 SECONDS (26.0-37.0)
[2019-04-23 07:43] LABS: ALBUMIN 3.2 gm/dL (3.5-5.0); BILIRUBIN,TOTAL 0.4 mg/dL (0.0-1.0); CALCIUM 9.6 mg/dL (8.4-10.2); CREATININE, serum 0.88 (0.52-1.25); POTASSIUM 3.7 mmol/L (3.4-5.0); TOTAL PROTEIN 6.6 gm/dL (6.4-8.2)
[2019-04-23 07:46] LABS: COLLECTION METHOD CATHETER
[2019-04-23 07:54] LABS: PH 7 (5-8); SQUAMOUS EPITHELIAL None Seen /hpf; URINE APPEARANCE Hazy; URINE BACTERIA None Seen /hpf; URINE BILIRUBIN Negative (NEGATIVE); URINE BLOOD Negative (NEGATIVE); URINE COLOR Yellow; URINE GLUCOSE Negative (NEGATIVE); URINE KETONE Negative (NEGATIVE); URINE LEUKOCYTE ESTERASE Negative (NEGATIVE); URINE NITRATE Negative (NEGATIVE); URINE PROTEIN(semi-quant) Negative (NEGATIVE); URINE RBC 0-2 /hpf; URINE UROBILINOGEN Negative (NEGATIVE)
[2019-04-23 08:03] LABS: LYMPHOCYTE 8 % (20.0-51.0); NEUTROPHILS 85 % (42.0-75.2)
[2019-04-23 08:04] LABS: ANISOCYTOSIS 1+; EOSINOPHIL 1 % (0-4); PLATELET ESTIMATE NORMAL (NORMAL)
[2019-04-23 08:05] LABS: HYPOCHROMIA 2+
--- NOTE | 2019-04-23 10:02 | NUR ---
MEKHI responded to ED consult and met with the patient. The patient recently had an inpatient stay at [facility] from 04/16-04/21. The patient had discharged back home with her life partner, Nolberto Simeon, and home health services for PT/OT/ST/wound care/longterm through [facility]. The patient's family had also hired a private duty caregiver. The patient reports that her life partner became ill and came to the hospital. Her life partner is now in [facility]'s ICU. MEKHI then followed up with the patient's daughters Conchita and Whitney. Conchita reports that she then had come yesterday to help her mother and assist the private duty caregiver. She states that around midnight the private duty caregiver left the patient's house on an errand and then never returned. The patient's daughter reports that she is unable to take care of the patient and the patient is unable to take care of her self. MEKHI discussed SNF. The patient reports that she would be agreable to SNF. The patient's daughters were both supportive of this. MEKHI presented and explained the patient choice form to the patient. The patient chose 1) [facility] 2) [facility]. Patient choice form signed by the patient. MEKHI contacted and faxed a referral to both facilities. MEKHI awaiting their screenings. MEKHI also contacted and updated Xander at [facility]. Xander reports that they were going to start services with her today.
--- NOTE | 2019-04-23 11:57 | NUR ---
[facility] and [facility] report that they can both accept the patient for a skilled stay. MEKHI met with the patient to inform. The patient reports that she would like to go to her first preference, [facility]. MEKHI contacted the patient's daughter, Conchita, to update. The patient's daughter is in agreeance to the plan. SW to update [facility]. The patient is to discharge from the ED today, 04/23, to [facility] for an emergency admit skilled stay. Transportation was set for 1230, via [facility]. MEKHI informed the patient, nurse, and the patient's daughter (Conchita) via phone. They were all in agreeance. No additional needs at this time.
[2019-04-23 13:00] VITALS: BP 134/65; PULSE 70
== END 2019-04-23 13:15 | disposition home or self-care (01) ==
LOC: COL.ER 06:47
PROVIDERS: Emergency Medicine
DX: R26.9 Unspecified abnormalities of gait and mobility (principal); I50.9 Heart failure, unspecified; E78.00 Pure hypercholesterolemia, unspecified; I48.91 Unspecified atrial fibrillation; I11.0 Hypertensive heart disease with heart failure; G40.909 Epilepsy, unspecified, not intractable, without status epilepticus; F03.90 Unspecified dementia, unspecified severity, without behavioral disturbance, psychotic disturbance, mood disturbance, and anxiety; Z79.51 Long term (current) use of inhaled steroids; Z87.01 Personal history of pneumonia (recurrent)